=== PATIENT | male | born 1965 | race Caucasian/White ===

== ENCOUNTER 2023-03-13 09:00 | Outpatient (OUT) | payer MEDICAID, SELFPAY ==
[2023-03-13 10:21] LABS: Basophils Absolute Auto 0.1 10^3/uL (0.0-0.1); Basophils Percent Auto 0.8 % (0.2-2.0); Eosinophils Absolute Auto 0.1 10^3/uL (0.0-0.7); Eosinophils Percent Auto 1.3 % (0.9-7.0); Hematocrit 41.6 % (42.0-54.0); Hemoglobin 13.9 g/dL (14.0-18.0); Immature Granulocytes Abs Auto 0.03 10^3/uL (0.00-0.03); Immature Granulocytes Pct Auto 0.3 % (0.0-0.5); Lymphocytes Absolute Auto 1.7 10^3/uL (1.2-3.8); Lymphocytes Percent Auto 18.3 % (20.5-60.0); Mean Corpuscular HGB Conc 33.4 g/dL (29.9-35.2); Mean Corpuscular Hemoglobin 28.2 pg (25.9-34.0); Mean Corpuscular Volume 84.4 fL (80.0-94.0); Monocytes Absolute Auto 0.9 10^3/uL (0.3-0.8); Monocytes Percent Auto 10.1 % (1.7-12.0); Neutrophils Absolute Auto 6.3 10^3/uL (1.4-6.5); Neutrophils Percent Auto 69.2 % (43.0-75.0); Platelet Count 328 10^3/uL (150-450); Red Blood Count 4.93 10^6/uL (4.70-6.10); Red Cell Distribution Width 12.9 % (11.0-15.0)
[2023-03-13 16:46] LABS: Alanine Aminotransferase 44 U/L (16-63); Albumin Globulin Ratio 0.9; Albumin Level 3.6 g/dL (3.4-5.0); Alkaline Phosphatase 113 U/L (46-116); Anion Gap 11.2; Aspartate Amino Transferase 20 U/L (15-37); BUN Creatinine Ratio 11.3; Bilirubin Total 0.7 mg/dL (0.2-1.0); Calcium 8.9 mg/dL (8.5-10.1); Carbon Dioxide 29.8 mmol/L (21.0-32.0); Chloride 101 mmol/L (98-107); Cholesterol 117 mg/dL (<=200); Estimated GFR (African America >60 (>=60); Estimated GFR (Non-African Ame >60 (>=60); Globulin 4.1 g/dL; Glucose 111 mg/dL (74-106); HDL Cholesterol 39 mg/dL (40-60); Sodium 138 mmol/L (136-145); Total Protein 7.7 g/dL (6.4-8.2); Triglycerides 80 mg/dL (<=150)
== END 2023-03-13 09:01 | disposition home or self-care (01) ==
LOC: LAB 09:15
PROVIDERS: PCP Family Medicine; Visit Provider Internal Medicine Interventional Cardiology
DX: I25.10 Atherosclerotic heart disease of native coronary artery without angina pectoris (principal); E78.2 Mixed hyperlipidemia; I10 Essential (primary) hypertension
CPT/HCPCS: 36415; 80053; 80061; 85025

== ENCOUNTER 2023-09-06 14:24 | Emergency (ER) | payer MEDICAID, SELFPAY ==
[2023-09-06] VITALS (16 sets, daily range): BP systolic 149; BP diastolic 84–90; PULSE 62–77; TEMP 36.6; O2SAT 94–98; BMI 31.6
--- NOTE | 2023-09-06 14:40 | ED.GENADUL1 ---
HPI HPI - General Adult General Chief complaint: Chest Pain Stated complaint: HIGH BLOOD PRESSURE Time Seen by Provider: 09/06/23 14:38 Source: patient Mode of arrival: walk-in Limitations: no limitations History of Present Illness HPI narrative: Patient is a 58-year-old male Who is presenting to the ER today with chief complaint of burning sensation to the left upper chest wall. Patient has 1 stent, placed approximately 4 years ago. Patient is compliant with his medication, the patient takes 1 baby aspirin daily. Patient has an appointment with his medical engineer tomorrow, Dr. Jackson. Patient did have a stress test and echocardiogram last year that showed no significant abnormalities. Patient has no rash. No abdominal pain nausea vomiting. No diarrhea, constipation. No acid reflux symptoms. All systems are negative except as noted/marked. All systems reviewed and otherwise negative. Nurses note and vital signs reviewed and patient is not hypoxic. General: The patient appears well and in no apparent distress. Patient is resting comfortably on cart. Patient is not toxic, lethargic, or listless Skin: Warm, dry, no pallor noted. There is no rash noted. No petechiae, purpura. Head: Normocephalic, atraumatic Eye: Normal conjunctiva, no drainage, EOMI. PERRL Ears, Nose, Mouth, and Throat: oral mucosa is moist. Nares patent. Mouth without vesicles. Cardiovascular: Regular Rate and Rhythm, no murmur, gallop, rub. . Patient has no rash. No reproducible tenderness to palpation to the left anterior chest wall. No left anterior chest wall pain with range of motion of his left upper extremity. No midepigastric pain, no right or left upper quadrant tenderness to palpation. Respiratory: Patient is in no distress, no accessory muscle use, lungs are clear to auscultation, no wheezing, rales or rhonchi Back: non-tender, no CVA tenderness bilaterally to percussion. No CT LS midline pain GI: no tenderness to palpation, no masses appreciated. No rebound, guarding, or rigidity noted. No distention Musculoskeletal: Patient has full range of motion of all of the extremities, no motor, sensory, or focal neurological deficits Neurological: A&O x4, normal speech Psychiatric: Cooperative Related Data Home Medications ?Medication ?Instructions ?Recorded ?Confirmed amlodipine 10 mg tablet 10 mg PO DAILY 09/06/23 09/06/23 atorvastatin 20 mg tablet 20 mg PO DAILY 09/06/23 09/06/23 carvedilol 12.5 mg tablet 12.5 mg PO Q12H 09/06/23 09/06/23 furosemide 20 mg tablet 20 mg PO DAILY 09/06/23 09/06/23 insulin glargine 100 unit/mL (3 unit subcut 09/06/23 mL) subcutaneous pen (Lantus Solostar U-100 Insulin) losartan 100 mg tablet 100 mg PO DAILY 09/06/23 09/06/23 metformin 500 mg tablet 500 mg PO DAILY 09/06/23 09/06/23 zolpidem 10 mg tablet 10 mg PO DAILY 09/06/23 09/06/23 Allergies Allergy/AdvReac Type Severity Reaction Status Date / Time No Known Drug Allergies Allergy Verified 09/06/23 14:37 Opioid HPI Opioid Management Most Recent Opioid Data: No Data to Display Exam Constitutional Vital Signs, click to edit/add: Last Vital Signs Temp 97.9 F 09/06/23 14:34 Pulse 72 09/06/23 14:34 Resp 18 09/06/23 14:34 BP 149/84 H 09/06/23 14:34 Pulse Ox 97 09/06/23 14:34 Course Vital Signs Vital signs: Vital Signs Temperature 97.9 F 09/06/23 14:34 Pulse Rate 72 09/06/23 14:34 Respiratory Rate 18 09/06/23 14:34 Blood Pressure 149/84 H 09/06/23 14:34 Pulse Oximetry 97 09/06/23 14:34 Temperature 97.9 F 09/06/23 14:34 Pulse Rate 72 09/06/23 14:34 Respiratory Rate 18 09/06/23 14:34 Blood Pressure 149/84 H 09/06/23 14:34 Pulse Oximetry 97 09/06/23 14:34 Medical Decision Making MDM Narrative Medical decision making narrative: Patient EKG, x-ray, lab work shows no acute findings. Patient has an appointment with his medical engineer tomorrow, Dr. Jackson. Patient has been having symptoms intermittently for the past 3 to 4 days. Initial troponin is negative today. Patient cardiac workup negative, will see heart doctor tomorrow, no questions at discharge. Lab Data Labs: Lab Results 09/06/23 Range/Units 14:42 WBC 8.8 (4.0-11.0) 10^3/uL RBC 4.76 (4.70-6.10) 10^6/uL Hgb 13.4 L (14.0-18.0) g/dL Hct 39.5 L (42.0-54.0) % MCV 83.0 (80.0-94.0) fL MCH 28.2 (25.9-34.0) pg MCHC 33.9 (29.9-35.2) g/dL RDW 12.0 (11.0-15.0) % Plt Count 284 (150-450) 10^3/uL MPV 10.3 (9.5-13.5) fL Neut % (Auto) 65.2 (43.0-75.0) % Lymph % (Auto) 21.6 (20.5-60.0) % Beaver % (Auto) 11.3 (1.7-12.0) % Eos % (Auto) 1.1 (0.9-7.0) % Baso % (Auto) 0.6 (0.2-2.0) % Neut # (Auto) 5.7 (1.4-6.5) 10^3/uL Lymph # (Auto) 1.9 (1.2-3.8) 10^3/uL Beaver # (Auto) 1.0 H (0.3-0.8) 10^3/uL Eos # (Auto) 0.1 (0.0-0.7) 10^3/uL Baso # (Auto) 0.1 (0.0-0.1) 10^3/uL Abs Immat Gran (auto) 0.02 (0.00-0.03) 10^3/uL Imm/Tot Granulo (auto) 0.2 (0.0-0.5) % Sodium 137 (136-145) mmol/L Potassium 3.4 L (3.5-5.1) mmol/L Chloride 101 (98-107) mmol/L Carbon Dioxide 25.1 (21.0-32.0) mmol/L Anion Gap 14.3 BUN 14.0 (7.0-18.0) mg/dL Creatinine 1.03 (0.70-1.30) mg/dL Est GFR ( Amer) >60 (>=60) Est GFR (Non-Af Amer) >60 (>=60) BUN/Creatinine Ratio 13.6 Glucose 138 H (74-106) mg/dL Calcium 8.3 L (8.5-10.1) mg/dL Total Bilirubin 0.4 (0.2-1.0) mg/dL AST 18 (15-37) U/L ALT 30 (16-63) U/L Alkaline Phosphatase 120 H (46-116) U/L Troponin I High Sens 8.2 (4.0-76.1) pg/mL Total Protein 7.4 (6.4-8.2) g/dL Albumin 3.5 (3.4-5.0) g/dL Globulin 3.9 g/dL Albumin/Globulin Ratio 0.9 Lipase 47.0 (16.0-77.0) U/L ECG Data Attestation: I personally reviewed and interpreted this ECG as follows: (EKG interpretation. Normal sinus rhythm at 68 beats a minute. Normal axis deviation. No acute ST elevation, no acute ectopy. QTc of 419) Discharge Plan Discharge Stand Alone Forms: Portal Instructions Chief Complaint: Chest Pain Clinical Impression: Chest pain, Hypokalemia Patient Disposition: Home, Self-Care Time of Disposition Decision: 16:34 Condition: Fair Prescriptions / Home Meds: No Action amlodipine 10 mg tablet 10 mg PO DAILY atorvastatin 20 mg tablet 20 mg PO DAILY carvedilol 12.5 mg tablet 12.5 mg PO Q12H furosemide 20 mg tablet 20 mg PO DAILY insulin glargine [Lantus Solostar U-100 Insulin] 100 unit/mL (3 mL) insulin pen SUBCUT losartan 100 mg tablet 100 mg PO DAILY metformin 500 mg tablet 500 mg PO DAILY zolpidem 10 mg tablet 10 mg PO DAILY Print Language: Bengali Additional Instructions: See your medical engineer tomorrow as scheduled appointment. Continue medication as prescribed. Start taking daily multivitamins Referrals: VERNA YAÑEZ [Physician] - 1 week SHANNAN JOHNSON [Primary Care Provider] - 1 week
--- OUTSIDE RECORDS SUMMARY | 2023-09-06 14:50 | XMS_ITS | CCD ---
Author Organization [facility] Care Team Providers Care Catalog Librarian Name Role Phone FRED MISHRA Unavailable Unavailable DANN JOHNSON Unavailable Unavailable RENNO, ANAS Unavailable Unavailable RENNO, ANAS Unavailable Unavailable [place] Unavailable Unavailable UNKNOWN, PROVIDER Unavailable Unavailable PHYSICIAN, DEFAULT Unavailable Unavailable PHYSICIAN, DEFAULT Unavailable Unavailable DANN JOHNSON Unavailable Unavailable MYRNA FERNANDEZ Admitting Unavailable MYRNA FERNANDEZ Attending Unavailable ALEX, DR CAMPBELL Primary Care Unavailable MYRNA FERNANDEZ Admitting Unavailable MYRNA FERNANDEZ Attending Unavailable ALEX, DR CAMPBELL Primary Care Unavailable MYRNA FERNANDEZ Consulting Unavailable VERNA YAÑEZ Attending Unavailable DANN JOHNSON Attending Unavailable KANWAL RODRIGUEZ Attending Unavailable Dann Johnson MD Primary Care Provider [phone] Medications Current Medications Medication Drug Class(es) Dates Sig (Normalized) Sig (Original) amLODIPine 10 mg oral tablet (3 sources) Dihydropyridine Calcium Channel Megan Start: 2 take 1 tablet by mouth in the morning amLODIPine (Norvasc) 10 MG tablet Take 1 tablet by mouth in the morning. 0 10/10/2021 Active aspirin 81 mg delayed release oral tablet (3 sources) Platelet Aggregation Inhibitor, Nonsteroidal Anti-inflammatory Drug take 1 tablet by mouth once daily aspirin 81 MG EC tablet Take 1 tablet every day by oral route for 30 days. 0 Active atorvastatin 20 mg oral tablet (3 sources) HMG-CoA Reductase Inhibitor Start: 4 take 1 tablet by mouth once daily atorvastatin (Lipitor) 20 MG tablet Indications: Hypertriglyceridemia (CMS/HCC) TAKE ONE TABLET BY MOUTH ONCE DAILY 30 tablet 0 03/03/2023 Active carvedilol 25 mg oral tablet (3 sources) alpha-Adrenergic Megan, beta-Adrenergic Megan carvedilol (Coreg) 2 5 MG tablet TAKE 12 TABLET BY MOUTH TWICE A DAY 0 Active doxazosin 2 mg oral tablet (3 sources) alpha-Adrenergic Megan Start: 3 take 1 tablet by mouth in the morning doxazosin (Cardura) 2 MG tablet Take 1 tablet by mouth in the morning. 0 03/05/2022 Active 0.5 ml dulaglutide 3 mg/ml auto-injector (3 sources) GLP-1 Receptor Agonist Start: 3 Trulicity 1.5 MG/0.5ML solution pen-injector Indications: Type 2 diabetes mellitus with other specified complication, with long-term current use of insulin ([facility]) INJECT ONE INJECTION VIA SUBCUTANEOUS ROUTE ONCE WEEKLY 2 mL 11 02/03/2023 Active furosemide 20 mg oral tablet (3 sources) Loop Diuretic take 1 tablet by mouth in the morning furosemide (Lasix) 20 MG tablet Take 1 tablet by mouth in the morning. 0 Active 3 ml insulin glargine 100 unt/ml pen injector (3 sources) Insulin Analog Start: 3 Lantus SoloStar 100 UNIT/ML pen Indications: Type 2 diabetes mellitus with other specified complication, unspecified whether intermediate teacher insulin use ([facility]) INJECT 25 UNITS SUB-Q DAILY (55 DAYS) 15 mL 2 12/08/2022 Active losartan potassium 100 mg oral tablet (3 sources) Angiotensin 2 Receptor Megan Start: 3 take 1 tablet by mouth in the morning losartan (Cozaar) 100 MG tablet Take 1 tablet by mouth in the morning. 0 03/03/2022 Active metFORMIN hydrochloride 500 mg oral tablet (3 sources) Biguanide Start: 3 take 1 tablet by mouth twice daily metFORMIN (Glucophage) 500 MG tablet Indications: Type 2 diabetes mellitus with hyperglycemia, unspecified whether intermediate insulin use ([facility]) TAKE ONE TABLET BY MOUTH TWICE A DAY 60 tablet 11 11/02/2022 Active nitroglycerin 0.4 mg sublingual tablet (3 sources) Nitrate Vasodilator nitroglyceri n (Nitrostat) 0.[address] 1 TABLET UNDER YOUR TONGUE EVERY 5 MINUTES NEEDED FOR CHEST PAIN FOR 3 DOSES ONLY. IF NO RELIEF, CALL [phone] Active zolpidem tartrate 10 mg oral tablet (3 sources) gamma-Aminobutyric Acid-ergic Agonist Start: 3 take 1 tablet by mouth once daily at bedtime as needed zolpidem (Ambien) 10 MG tablet Indications: Insomnia, unspecified type TAKE ONE TABLET BY MOUTH ONCE DAILY AT BEDTIME NEEDED 30 tablet 3 01/11/2023 Active Completed/Discontinued Medications Medication Drug Class(es) Dates Sig (Normalized) Sig (Original) clopidogrel 75 mg oral tablet (3 sources) P2Y12 Platelet Inhibitor Start: 10-10-2021 End: 03-25-2023 take 1 tablet by mouth in the morning clopidogrel (Plavix) 75 MG tablet Take 1 tablet by mouth in the morning. 0 10/10/2021 03/25/2023 Discontinued (Other) minocycline 100 mg oral capsule (3 sources) Tetracycline-cla ss Drug Start: 02-16-2023 End: 03-25-2023 take 1 capsule by mouth twice daily minocycline 100 MG capsule Indications: Infection of superficial incisional surgical site after procedure, initial encounter Take 1 capsule, by mouth, bid, 10 days 20 capsule 0 02/16/2023 03/25/2023 Discontinued (Other) Problems Active Problems Problem Classification Problem Date Documented Date Episodic/Chronic Cardiac dysrhythmias (1 source) Bradycardia, unspecified; Translations: [BRADYCARDIA, UNSPECIFIED] Onset: 10-01-2017 Chronic Coronary atherosclerosis and other heart disease (20 sources) Atherosclerotic heart disease of [place] coronary artery without angina pectoris; Translations: [Atherosclerotic heart disease of [place] coronary artery with unstable angina pectoris] Onset: 10-01-2017 Chronic Coronary atherosclerosis and other heart disease (2 sources) Presence of coronary angioplasty implant and graft; Translations: [Presence of coronary angioplasty implant and graft] Onset: 03-10-2023 Episodic Diabetes mellitus with complications (8 sources) Hyperglycemia due to type 2 diabetes mellitus; Translations: [Type 2 diabetes mellitus with hyperglycemia] Onset: 10-31-2018 09-17-2022 Chronic Diabetes mellitus without complication (4 sources) Type 2 diabetes mellitus without complications; Translations: [Type 2 diabetes mellitus] Onset: 10-01-2017 09-17-2022 Chronic Digestive congenital anomalies (3 sources) Congenital anomaly of liver; Translations: [Liver anomaly, congenital] Onset: 04-06-2016 09-17-2022 Chronic Disorders of lipid metabolism (9 sources) Hyperlipidemia, unspecified; Translations: [Mixed hyperlipidemia] Onset: 05-10-2017 Chronic Esophageal disorders (3 sources) Gastroesophageal reflux disease; Translations: [Gastro-esophageal reflux disease without esophagitis] Onset: 04-04-2007 09-17-2022 Chronic Essential hypertension (6 sources) Essential (primary) hypertension; Translations: [Essential hypertension] Onset: 07-09-2015 Chronic Fluid and electrolyte disorders (1 source) Hypokalemia; Translations: [HYPOKALEMIA] Onset: 10-01-2017 Episodic Headache; including migraine (3 sources) Tension-type headache; Translations: [Tension-type headache, unspecified, not intractable] Onset: 07-09-2015 09-17-2022 Chronic Melanomas of skin (3 sources) Melanoma in situ of left upper limb, including shoulder; Translations: [Malignant melanoma of skin of upper limb, including shoulder] Onset: 09-17-2022 09-17-2022 Chronic Osteoarthritis (3 sources) Localized, primary osteoarthritis of the hand; Translations: [Primary osteoarthritis, unspecified hand] Onset: 09-17-2022 09-17-2022 Chronic Other aftercare (4 sources) Long-term current use of insulin; Translations: [intermediate (current) use of insulin] Onset: 03-25-2023 03-25-2023 Episodic Other male genital disorders (3 sources) Secondary erectile dysfunction; Translations: [Male erectile dysfunction, unspecified] Onset: 04-04-2007 09-17-2022 Chronic Other nutritional; endocrine; and metabolic disorders (3 sources) Lipoprotein deficiency disorder; Translations: [Lipoprotein deficiency] Onset: 07-16-2015 09-17-2022 Chronic Other nutritional; endocrine; and metabolic disorders (3 sources) Cholesterol level - finding; Translations: [Lipoprotein deficiency] Onset: 09-17-2022 09-17-2022 Chronic Unclassified (2 sources) Unknown / UNK(Unknown) Onset: 10-01-2017 Past or Other Problems Problem Classification Problem Date Documented Da te Episodic/Chronic Calculus of urinary tract (3 sources) Kidney stone; Translations: [Calculus of kidney] Onset: 03-11-2016 09-17-2022 Episodic Diabetes mellitus without complication (6 sources) Hyperglycemia; Translations: [Hyperglycemia, unspecified] Onset: 04-06-2016 09-17-2022 Episodic Other circulatory disease (3 sources) Elevated blood pressure; Translations: [Elevated blood-pressure reading, without diagnosis of hypertension] Onset: 07-16-2015 09-17-2022 Episodic Residual codes; unclassified (3 sources) Insomnia; Translations: [Insomnia, unspecified] Onset: 08-06-2022 08-06-2022 Episodic Residual codes; unclassified (3 sources) Edema of lower extremity; Translations: [Localized edema] Onset: 03-17-2019 09-17-2022 Episodic Residual codes; unclassified (3 sources) Amnesia; Translations: [Other amnesia] Onset: 09-17-2022 09-17-2022 Episodic Results Test Name Value Interpretation [facility] Laboratory - Hematology and Cell countson 03-25-2023 HbA1c (Bld) [Mass fraction] 6.5 % [facility] No Panel Informationon 03-25 Interpretation and review of laboratory results Normal [facility] Office Visiton 03-10-2023 Follow-up visit [id number] Dasha Squires 1965 M Date Provider Department Center 03/10/[address] [facility] Family History Problem Relation Age of Onset Other Mother Hypertension Father Coronary artery disease Father Family Status - Relation Status Age at Mother Father Level of Service:30515 [place] OFFICE/OUTPATIENT ESTABLISHED LOW MDM 20 MIN Normal [facility] 36on 03-03-2023 36 Approving, but needs appt for additional refills. Normal [facility] LIPID PROFILEon 05-12-2021 CHOL-HDL RATIO NORM SEE BELOW Normal [facility] Comment on above: Result Comment: 3.3 - 4.4 LOW RISK 4.4 - 7.1 AVERAGE RISK 7.1 - 11.0 MODERATE RISK >11.0 HIGH RISK Performed By: #### L IPID, CMP #### [facility] [address] [address] [address] Suman Montes Cholesterol [Mass/Vol] 100 mg/dL Normal <=200 [facility] Comment on above: Performed By: #### LIPID, CMP #### [facility] [address], [place] [address] Dr. Suman Montes Cholesterol in HDL [Mass/Vol] 39 mg/dL Critically low 40-60 [facility] Comment on above: Performed By: #### LIPID, CMP #### [facility] [address] [address] [address] Suman Montes Cholesterol in LDL [Mass/Vol] 43.8 mg/dL Normal [facility] Comment on above: Performed By: #### LIPID, CMP #### [facility] [address] [address] [address] Suman Montes Cholesterol.tota l/Cholesterol in HDL [Mass ratio] 2.6 {ratio} Normal [facility] Comment on above: Performed By: #### LIPID, CMP #### [facility] [address] [address] [address] Suman Montes HDL NORMAL > or = 60 mg/dl - LO W CARDIOVASCULAR RISK <40 mg/dl - HIGH CARDIOVASCULAR RISK Normal [facility] Comment on above: Performed By: #### LIPID, CMP #### [facility] [address] [place] [address] Dr. Suman Montes LDL CALC NORMAL SEE BELOW Normal [facility] Comment on above: Result Comment: <100 mg/dl OPTIMAL 100 - 129 mg/dl NEAR OR ABOVE OPTIMAL 130 - 159 mg/dl BORDERLINE HIGH 160 - 189 mg/dl HIGH >190 mg/dl VERY HIGH Performed By: #### L IPID, CMP #### [facility] [address] [address] [address] Suman Montes Triglyceride [Mass/Vol] 86 mg/dL Normal <=150 [facility] Comment on above: Performed By: #### LIPID, CMP #### [facility] [address] [place] [address] Dr. Suman Montes VLDL CALC 17.2 mg/dL Normal [facility] Comment on above: Performed By: #### LIPID, CMP #### [facility] [address] [address] [address] Suman Montes PROF 14(COMP METB)on 022 Albumin [Mass/Vol] 3.9 g/dL Normal 3.4-5.0 [facility] Comment on above: Performed By: #### LIPID, CMP #### [facility] [address] [place] [address] Dr. Suman Montes Albumin/Globulin [Mass ratio] 0.9 {ratio} Normal [facility] Comment on above: Performed By: #### LIPID, CMP #### [facility] [address] [address] [address] Suman Montes ALP [Catalytic activity/Vol] 136 U/L Critically high 46-116 [facility] Comment on above: Performed By: #### LIPID, CMP #### [facility] [address] [address] [address] Suman Montes ALT [Catalytic activity/Vol] 23 U/L Normal 16-63 [facility] Comment on above: Performed By: #### LIPID, CMP #### [facility] [address] [place] [address] Dr. Suman Montes Anion gap [Moles/Vol] 11.9 mmol/L Normal [facility] Comment on above: Performed By: #### LIPID, CMP #### [facility] [address] [place] [address] Dr. Suman Montes AST [Catalytic activity/Vol] 13 U/L Critically low 15-37 [facility] Comment on above: Performed By: #### LIPID, CMP #### [facility] [address] [place] [address] Dr. Suman Montes Bilirubin [Mass/Vol] 0.5 mg/dL Normal 0.2-1.3 [facility] Comment on above: Performed By: #### LIPID, CMP #### [facility] [address] [place] [address] Dr. Suman Montes Calcium [Mass/Vol] 8.7 mg/dL Normal 8.5-10.1 [facility] Comment on above: Performed By: #### LIPID, CMP #### [facility] [address] [address] [address] Suman Montes Chloride [Moles/Vol] 103 mmol/L Normal 98-107 [facility] Comment on above: Performed By: #### LIPID, CMP #### [facility] [address] [place] [address] Dr. Suman Montes CO2 [Moles/Vol] 28.8 mmol/L Normal 22.0-30.0 [facility] Comment on above: Performed By: #### LIPID, CMP #### [facility] [address] [address] [address] Suman Montes Creatinine [Mass/Vol] 0.97 mg/dL Normal 0.66-1.25 [facility] Comment on above: Performed By: #### LIPID, CMP #### [facility] [address] [place] [address] Dr. Suman Montes EGFR-AF ZAMBIAN >60 Normal >=60 [facility] Comment on above: Performed By: #### LIPID, CMP #### [facility] [address] [address] [address] Suman Montes EGFR-NON AF ZAMBIAN >60 Normal >=60 [facility] Comment on above: Performed By: #### LIPID, CMP #### [facility] [address] [place] [address] Dr. Suman Montes Globulin (S) [Mass/Vol] 4.2 g/dL Normal [facility] Comment on above: Performed By: #### LIPID, CMP #### [facility] [address] [place] [address] Dr. Suman Montes Glucose [Mass/Vol] 87 mg/dL Normal 74-106 [facility] Comment on above: Performed By: #### LIPID, CMP #### [facility] [address] [place] [address] Dr. Suman Montes Potassium [Moles/Vol] 3.7 mmol/L Normal 3.4-5.0 [facility] Comment on above: Performed By: #### LIPID, CMP #### [facility] [address] [place] [address] Dr. Suman Montes Protein [Mass/Vol] 8.1 g/dL Normal 6.1-8.2 [facility] Comment on above: Performed By: #### LIPID, CMP #### [facility] [address] [place] [address] Dr. Suman Montes Sodium [Moles/Vol] 140 mmol/L Normal 137-145 [facility] Comment on above: Performed By: #### LIPID, CMP #### [facility] [address], [place] [address] Dr. Suman Montes Urea nitrogen [Mass/Vol] 14.0 mg/dL Normal 7.0-18.0 [facility] Comment on above: Performed By: #### LIPID, CMP #### [facility] [address], [place] [address] Dr. Suman Montes Urea nitrogen/Creatin ine [Mass ratio] 14.4 mg/mg Normal [facility] Comment on above: Performed By: #### LIPID, CMP #### [facility] [address], [place] [address] Dr. Suman Montes Q - MICROALBUMIN,RANDOM URIN E (W/CREAT)on 03-24-2021 Albumin DL <= 20 mg/L (U) [Mass/Vol] 1.8 mg/dL Normal See Note: [facility] Comment on above: Order Comment: [facility] Testing performed at: [facility], [address] [place] [address], [address] [place] [address], [address] [place] [address], [employer]: Toi Dey MD [facility] Collection Date/Time: [facility] Results Received Date/Time: [facility] Reported Date/Time: Result Comment: Refe rence Range: Reference Range Not established Performed By: #### 6 [id number] #### [facility] Default [address] [place] [address] Creatinine (U) [Mass/Vol] 256 mg/dL Normal 20-320 [facility] Comment on above: Order Comment: [facility] Testing performed at: [facility], [address] [place] [address], [address] [place] [address], [address] [place] [address], [employer]: Toi Dey MD [facility] Collection Date/Time: [facility] Results Received Date/Time: [facility] Reported Date/Time: Performed By: #### 6 [id number] #### [facility] [address] [place] [address] MICROALBUMIN/CRE ATININE RATIO, RANDOM URINE 7 mcg/mg creat Normal <30 [facility] Regulation Supervisor Comment on above: Order Comment: [facility] Testing performed at: [facility], [facility], [address], [address] [facility], [place], [address], [employer]: Toi Dey MD [facility] Collection Date/Time: [id number] [facility] Results Received Date/Time: [facility] Reported Date/Time: Result Comment: The ADA defines abnormalities in albumin excretion as follows: Albuminuria Category Result (mcg/mg creatinine) Normal to Mildly increased <30 Moderately increased 30-299 Severely increased > OR = 300 The ADA recommends that at least two of three specimens collected within a 3-6 month period be abnormal before considering a patient to be within a diagnostic category. Performed By: #### 6 [id number] #### [facility] [address] [place] [address] BASIC METABOLIC PANELon 08-2 Calcium mass conc 9.0 mg/dL Normal 8.6-10.3 [facility] Comment on above: Order Comment: No: Do not add to previou s draw Performed By: #### 3 5200 ####[facility] [facility] [place] [address], [facility] Chloride molar conc 101 mmol/L Normal 98-107 [facility] Comment on above: Order Comment: No: Do not add to previou s draw Performed By: #### 3 5200 ####[facility] [place] [address], [facility] CO2 molar conc 26 mmol/L Normal 21-31 [facility] Comment on above: Order Comment: No: Do not add to previou s draw Performed By: #### 3 5200 ####[facility] [facility] [place] [address], [facility] Creatinine mass conc 0.99 mg/dL Normal 0.70-1.30 [facility] Comment on above: Order Comment: No: Do not add to previou s draw Performed By: #### 3 5200 ####[facility] [place] [address], [place] GFR/1.73 sq M predicted among blacks MDRD vol rate/area (S/P/Bld) mL/min/{1.73_m2} Normal >60 [facility] Comment on above: Order Comment: No: Do not add to previou s draw Performed By: #### 3 5200 ####[facility] [place] [address], [place] GFR/1.73 sq M predicted among non-blacks MDRD vol rate/area (S/P/Bld) mL/min/{1.73_m2} Normal >60 [facility] Comment on above: Order Comment: No: Do not add to previou s draw Performed By: #### 3 5200 ####[facility] [place] [address], [facility] Glucose mass conc 209 mg/dL High 70-100 [facility] Comment on above: Order Comment: No: Do not add to previou s draw Performed By: #### 3 5200 ####[facility] [place] [address], [facility] Potassium molar conc 3.5 mmol/L Normal 3.5-5.1 [facility] Comment on above: Order Comment: No: Do not add to previou s draw Performed By: #### 3 5200 ####[facility] [place] [address], [place] Sodium molar conc 135 mmol/L Low 136-145 [facility] Comment on above: Order Comment: No: Do not add to previou s draw Performed By: #### 3 5200 ####[facility] [place] [address], [place] Urea nitrogen mass conc 24 mg/dL Normal 7-25 [facility] Comment on above: Order Comment: No: Do not add to previou s draw Performed By: #### 3 5200 ####[facility] CBC COMPLETE BLOOD COUNTon 0 10-05-2017 Erythrocyte distribution width Auto Ratio (RBC) 12.6 % Normal 11.5-15.0 [facility] Comment on above: Order Comment: No: Do not add to previou s draw Performed By: #### 3 5200 ####[facility], [place] [address] [place] [address] Hematocrit Auto Volume Fraction (Bld) 45.3 % Normal 39.0-50.0 [facility] Comment on above: Order Comment: No: Do not add to previou s draw Performed By: #### 3 5200 ####[facility], [place] [id number] [place] [address] Hemoglobin mass conc (Bld) 15.1 g/dL Normal 13.0-17.0 [facility] Comment on above: Order Comment: No: Do not add to previou s draw Performed By: #### 3 5200 ####[facility] MCH Auto Entitic mass (RBC) 28.1 pg Normal 27.0-33.0 [facility] Comment on above: Order Comment: No: Do not add to previou s draw Performed By: #### 3 5200 ####[facility] [place] [address], [facility] MCHC Auto mass conc (RBC) 33.3 g/dL Normal 32.0-35.0 [facility] Comment on above: Order Comment: No: Do not add to previou s draw Performed By: #### 3 5200 ####[facility] [place] [address], [facility] MCV Auto Entitic volume (RBC) 84.4 fL Normal 82.0-98.0 [facility] Comment on above: Order Comment: No: Do not add to previou s draw Performed By: #### 3 5200 ####[facility] [facility].[address] Nucleated RBC/100 WBC Ratio (Bld) 0 % Normal 0-0 [facility] Comment on above: Order Comment: No: Do not add to previou s draw Performed By: #### 3 5200 ####[facility] [facility] [place] [address], [facility] PLAT CNT 316 10*3/uL Normal 150-400 [facility] Comment on above: Order Comment: No: Do not add to previou s draw Performed By: #### 3 5200 ####[facility] [facility].[address] RBC Auto #/vol (Bld) 5.37 10*6/uL Normal 4.20-5.70 [facility] Comment on above: Order Comment: No: Do not add to previou s draw Performed By: #### 3 5200 ####[facility] [facility].[address] WBC Auto #/vol (Bld) 13.77 10*3/uL High 4.00-10.60 [facility] Comment on above: Order Comment: No: Do not add to previou s draw Performed By: #### 3 5200 ####[facility] [facility].[address] Cardiovascular Lab Reporton 10-05-2017 Cardiovascular Lab Report [facility]: [id number] Physician: Verna Tidwell M.D.Medicine Service Date: 10/04/2017Division of Birthdate: 1965Cardiology Room #: [id number] [facility], [place] [address]Eiwhj Fax Cardiovascular Laboratory ReportINDICATION: Monica Squires is a 52-year-old man, who was admitted withunstable angina. A stress test showed lateral ischemia. He was referredfor cardiac catheterization.PROCEDURE:1. Bilateral selective coronary angiography.2. Limited right femoral angiography.3. Successful balloon angioplasty and drug-eluting stenting of 85% stenosis in the mid LAD, reduced to 0% by deployment of a Synergy 3.5 x 20 mm drug-eluting stent post dilated to 3.5 mm at high pressures.4. Administration of intracoronary nitroglycerin.5. Deployment of a vascular access closure device.METHOD: Procedure was explained to the patient with risks and benefits.He signed informed consent. He was brought to pathology laboratory director in a fasting state.The right wrist area was prepped and draped in usual fashion. Jorge's testwas favorable using ultrasound access and micropuncture technique, attemptat accessing the right radial artery failed due to very small caliber ofthe vessel, this access site was abandoned.The right groin area was prepped and draped in usual fashion. Usingultrasound guidance and micropuncture technique, access was obtained in theright common femoral artery. The inner cannula was advanced. Limitedright femoral angiography was performed followed by upsizing to a 6-Frenchx 11 cm sheath. Bilateral selective coronary angiography was thenperformed using 6-Qatari JL3.5, and JR4 diagnostic catheters. Catheterswere removed.Heparin was administered intravenously and therapeutic ACT confirmed duringthe procedure. A 6-Qatari XB 3.5 guiding catheter was advanced and used toengage left main coronary ostium. A [place] wire was advanced into thedistal LAD. Balloon angioplasty in the mid LAD was performed using Emerge3.0 x 15 mm balloon, inflated at 12 atmospheres. Angiography revealedsuboptimal results. This was treated using a Synergy 3.5 x 20 mmdrug-eluting stent deployed at 11 atmospheres, post dilated using NCQuantum [place] 3.5 x 15 mm noncompliant balloon inflated at 16 atmospheresthroughout the length of the stent. Angiography after administration ofintracoronary nitroglycerin showed excellent result with no evidence ofdissection or perforation and TANNER-3 flow in the LAD and branches. Guidingcatheter was removed. Procedure was concluded. The right femoralarteriotomy was managed with a 6-Qatari Perclose device with goodhemostasis. He was loaded with 600 mg of Plavix at the end of theprocedure. He was transferred back to his room.TOTAL FLUORO TIME: 12.12 minutes.TOTAL AIR KARMA: 1077 mGy.TOTAL CONTRAST VOLUME: 150 mL.HEMODYNAMICS: AO 98/63, mean 79.CORONARY ANGIOGRAPHY: This is a right dominant circulation.Left main. This arises from left coronary cusp. It bifurcates into leftanterior descending and circumflex vessels. Left main is free of disease.Left anterior descending. This has 85% irregular stenosis in its midsegment. This was reduced to 0% by balloon angioplasty and Synergydrug-eluting stent. The apical LAD has 80% stenosis. The location of thestenosis is very close to the distal end of the LAD. A second diagonalbranch has a 50% ostial stenosis. This branch is of moderate caliber.Circumflex vessel. This is nondominant and has minimal luminalirregularities.Right coronary artery. This arises from the right coronary cusp. It is alarge and dominant vessel. It has a 60% mid segment stenosis, but no clearobstructive lesions.Limited right femoral angiography. This showed access to be in the rightcommon femoral artery with no obstructive lesions noted in the femoralartery or its proximal branches.SUMMARY OF FINDINGS:1. Coronary artery disease with moderate to severe 2-vessel disease.2. An 85% mid LAD, irregular stenosis, reduced to 0% by Synergy drug-eluting stent.3. An 80% stenosis in the very apical LAD.4. A 50% stenosis in the ostium of a moderate size 2nd diagonal branch.5. A 60% stenosis in the mid right coronary artery.RECOMMENDATIONS:1. Aspirin and statin therapy for life.2. Plavix therapy for minimum of 1 year after unstable angina and drug-eluting stenting.3. It is recommended that this patient undergoes a followup stress test to look for ischemia on the right coronary artery territory and revascularize accordingly.4. Follow up in Cardiology Clinic.Electronically Signed by:Verna Yañez M.D. 10/18/2017 12:03 A Verna Yañez M.D.Date Dict: 10/04/2017/01:46 P/Verna Yañez M.D.Date Trans: 10/05/2017 05:11 A/[id number]_[id number]: Dann Johnson M.D. [facility] [address] [facility] [address] Fred Mishra M.D. [address] Internal Medicine [facility] [address] Normal [facility] Discharge Summaryon 10-06-19 Discharge Summary MR#: [id number] [facility] Monica Squires Admitted: 10/01/2017 Discharged: 10/05/2017 Date of : 1965 Physician: Yue Ibarra M.D. DISCHARGE SUMMARYDISCHARGING PHYSICIAN: Dr. Ibarra.PRIMARY CARE PHYSICIAN: Dr. Dann Johnson.PRIMARY DIAGNOSIS: Coronary artery disease status post stent placement.SECONDARY DIAGNOSES:1. Hypertension, controlled.2. Dyslipidemia.CONSULTS: Cardiology.PROCEDURES/IMAGING: EKG, stress test, and cardiac cath.HOSPITAL COURSE: This is a 52-year-old male, presented to [facility] for chestpain. EKG was done that was unremarkable except sinus bradycardia.Troponins were negative. Cardiology was consulted. Stress test revealedischemia. Cardiac catheterization was done and was found to be mid leftatrial disease with 85% blockage. Balloon angioplasty, and drug-elutingstent was placed, size of 3.5 x 20 mm. He was started on aspirin andstatin for life and recommended Plavix for 1 year. He was also recommendedto follow up for stress test to rule out ischemia. He is denying any chestpain, shortness of breath, dizziness, or diaphoresis. He also denies anynausea, vomiting, fever, or chills, He is going to follow up with as an outpatient.MEDICATIONS AT THE TIME OF DISCHARGE:1. Aspirin 81 mg once daily.2. Amlodipine 10 mg once daily.3. Ambien 10 mg once daily.4. Lipitor 80 mg once daily at bedtime.5. Coreg 12.5 mg twice daily.6. Plavix 75 mg once daily.7. Hydrochlorothiazide 25 mg once daily.8. Losartan 100 mg once daily.9. Metformin 1000 mg once daily.10. Tylenol 325 mg every 6 hours as needed.11. Nitroglycerin 0.4 mg sublingual tablet as directed.PHYSICAL EXAMINATION: GENERAL: No acute distress. Alert and oriented x3.VITAL SIGNS: Stable.HEENT: Normocephalic, nonicteric. PERRLA.LUNGS: Clear to auscultation bilaterally. No wheezing. Nonlabored.CARDIOVASCULAR: Regular rate and rhythm. No murmur. No JVD.ABDOMEN: Soft, nontender, nondistended. Bowel sounds positive. Noguarding or rebound.EXTREMITIES: No edema. Pulses palpable.NEURO: No acute focal deficit.PSYCH: Stable mood.DISCHARGE CONDITION: Medically stable.DISCHARGE DISPOSITION: Home.FOLLOWUP:1. Follow up with your PCP, Dr. Johnson within 1 week.2. Follow up with Dr. Yañez on 10/25/2017 at 9:45 a.m. at [facility].MEDICATIONS: Continue aspirin, statin, and Plavix as prescribed.Time spent for the discharge summary and coordination of care is 37minutes.Electronically Signed by:Yue Ibarra M.D. 10/08/2017 04:16 P ____uYe Ibarra M.D. I personally saw this patient on the day of the encounter, performed thekey portion(s) of the service and participated in the management andconfirm the resident's documentation. Please note there may be anadditional personal documentation from me. Date Dict: 10/05/2017/05:25 P/Mahendra Dailey Trans: 10/05/2017 06:46 P/[id number]: Dann Johnson M.D. [facility] [address] [facility] [address] Fred Mishra M.D. [address] [facility]. [facility] [address] [facility] POC GLUCOSE LABon 10-05-2017 Glucose mass conc 134 mg/dL High 70-100 [facility] Comment on above: Performed By: #### [id number] ####[facility] [place] [address], [facility] BASIC METABOLIC PANELon 09-16 Calcium mass conc 9.0 mg/dL Normal 8.6-10.3 [facility] Comment on above: Order Comment: No: Do not add to previou s draw Performed By: #### 5 610, 62286 ####[facility] [place] [address], [facility] Chloride molar conc 103 mmol/L Normal 98-107 [facility] Comment on above: Order Comment: No: Do not add to previou s draw Performed By: #### 5 610, 73352 ####[facility] [place] [address], [facility] CO2 molar conc 25 mmol/L Normal 21-31 [facility] Comment on above: Order Comment: No: Do not add to previou s draw Performed By: #### 5 344, 05134 ####[facility] [place] [address], [facility] Creatinine mass conc 1.05 mg/dL Normal 0.70-1.30 [facility] Comment on above: Order Comment: No: Do not add to previou s draw Performed By: #### 5 079, 03726 ####[facility] [place] [address], [place] GFR/1.73 sq M predicted among blacks MDRD vol rate/area (S/P/Bld) mL/min/{1.73_m2} Normal >60 [facility] Comment on above: Order Comment: No: Do not add to previou s draw Performed By: #### 5 610, 46320 ####[facility] GFR/1.73 sq M predicted among non-blacks MDRD vol rate/area (S/P/Bld) mL/min/{1.73_m2} Normal >60 [facility] Comment on above: Order Comment: No: Do not add to previou s draw Performed By: #### 5 610, 92037 ####[facility] Glucose mass conc 170 mg/dL High 70-100 [facility] Comment on above: Order Comment: No: Do not add to previou s draw Performed By: #### 5 610, 60841 ####[facility] Potassium molar conc 3.1 mmol/L Low 3.5-5.1 [facility] Comment on above: Order Comment: No: Do not add to previou s draw Performed By: #### 5 610, 76796 ####[facility] Sodium molar conc 137 mmol/L Normal 136-145 [facility] Comment on above: Order Comment: No: Do not add to previou s draw Performed By: #### 5 610, 42466 ####[facility] Urea nitrogen mass conc 32 mg/dL High 7-25 [facility] Comment on above: Order Comment: No: Do not add to previou s draw Performed By: #### 5 610, 03130 ####[facility] [place] [address], [facility] CBC W/DIFFon 10-04-2017 ABS BASOPHILS 0.1 10*3/uL Normal 0.0-0.2 [facility] Comment on above: Order Comment: No: Do not add to previou s draw Performed By: #### 5 610, 32850 ####[facility] [facility].[address] ABS IMM GRANS 0.0 10*3/uL Normal 0.0-0.2 [facility] Comment on above: Order Comment: No: Do not add to previou s draw Performed By: #### 5 610, 89495 ####[facility]3000 [facility].[address] ABS NEUTROPHILS 6.1 10*3/uL Normal 1.6-7.6 [facility] Comment on above: Order Comment: No: Do not add to previou s draw Performed By: #### 5 6100, 49380 ####[facility] [facility].[address] Basophils Auto #/vol (Bld) 0.5 % Normal 0.0-1.0 [facility] Comment on above: Order Comment: No: Do not add to previou s draw Performed By: #### 5 6100, 92868 ####[facility] [facility].[address] Eosinophils Auto #/vol (Bld) 0.1 10*3/uL Normal 0.0-0.5 [facility] Comment on above: Order Comment: No: Do not add to previou s draw Performed By: #### 5 6100, 68973 ####[facility] [facility].[address] Eosinophils/100 WBC Auto (Bld) 1.4 % Normal 0.0-6.0 [facility] Comment on above: Order Comment: No: Do not add to previou s draw Performed By: #### 5 610, 41666 ####[facility] [facility].[address] Erythrocyte distribution width Auto Ratio (RBC) 12.3 % Normal 11.5-15.0 [facility] Comment on above: Order Comment: No: Do not add to previou s draw Performed By: #### 5 610, 90659 ####[facility] [facility] Hematocrit Auto Volume Fraction (Bld) 44.4 % Normal 39.0-50.0 [facility] Comment on above: Order Comment: No: Do not add to previou s draw Performed By: #### 5 6100, 79412 ####[facility] Hemoglobin mass conc (Bld) 14.9 g/dL Normal 13.0-17.0 [facility] Comment on above: Order Comment: No: Do not add to previou s draw Performed By: #### 5 6100, 18550 ####[facility] [facility].[address] IMMATURE GRANS 0.3 % Normal 0.0-1.0 [facility] Comment on above: Order Comment: No: Do not add to previou s draw Performed By: #### 5 6100, 27615 ####[facility] [facility].[address] Lymphocytes Auto #/vol (Bld) 2.4 10*3/uL Normal 1.2-4.0 [facility] Comment on above: Order Comment: No: Do not add to previou s draw Performed By: #### 5 6100, 06515 ####[facility] Lymphocytes/100 WBC Auto (Bld) 24.0 % Normal 20.0-45.0 [facility] Comment on above: Order Comment: No: Do not add to previou s draw Performed By: #### 5 610, 96680 ####[facility] MCH Auto Entitic mass (RBC) 28.0 pg Normal 27.0-33.0 [facility] Comment on above: Order Comment: No: Do not add to previou s draw Performed By: #### 5 6100, 48601 ####[facility] MCHC Auto mass conc (RBC) 33.6 g/dL Normal 32.0-35.0 [facility] Comment on above: Order Comment: No: Do not add to previou s draw Performed By: #### 5 6100, 49399 ####[facility] MCV Auto Entitic volume (RBC) 83.5 fL Normal 82.0-98.0 [facility] Comment on above: Order Comment: No: Do not add to previou s draw Performed By: #### 5 6100, 23332 ####[facility] Monocytes Auto #/vol (Bld) 1.3 10*3/uL High 0.1-1.0 [facility] Comment on above: Order Comment: No: Do not add to previou s draw Performed By: #### 5 6100, 04114 ####[facility] MONOS 13.1 % High 5.0-12.0 [facility] Comment on above: Order Comment: No: Do not add to previou s draw Performed By: #### 5 6100, 68286 ####[facility] Neutrophils/100 WBC Auto (Bld) 60.7 % Normal 40.0-72.0 [facility] Comment on above: Order Comment: No: Do not add to previou s draw Performed By: #### 5 6100, 35651 ####[facility] Nucleated RBC/100 WBC Ratio (Bld) 0 % Normal 0-0 [facility] Comment on above: Order Comment: No: Do not add to previou s draw Performed By: #### 5 6101, 32261 ####[facility] [facility] [place] [address], [facility] PLAT CNT 304 10*3/uL Normal 150-400 [facility] Comment on above: Order Comment: No: Do not add to previou s draw Performed By: #### 5 6101, 59346 ####[facility] [facility].[address] RBC Auto #/vol (Bld) 5.32 10*6/uL Normal 4.20-5.70 [facility] Comment on above: Order Comment: No: Do not add to previou s draw Performed By: #### 5 6101, 17062 ####[facility] [facility].[address] WBC Auto #/vol (Bld) 9.99 10*3/uL Normal 4.00-10.60 [facility] Comment on above: Order Comment: No: Do not add to previou s draw Performed By: #### 5 6101, 54587 ####[facility] [facility].[address] MAGNESIUM BLOODon 10-04-2017 Magnesium mass conc 1.9 mg/dL Normal 1.9-2.7 [facility] Comment on above: Order Comment: No: Do not add to previou s draw Performed By: #### 3 5200 ####[facility] [facility] [place] [address], [facility] PHOSPHORUS BLOODon 8 Phosphate mass conc 3.8 mg/dL Normal 2.5-5.0 [facility] Comment on above: Order Comment: No: Do not add to previou s draw Performed By: #### 5 6101, 21206 ####[facility] [place] [address], [facility] POC GLUCOSE LABon 10-04-2017 Glucose mass conc 138 mg/dL High 70-100 [facility] Comment on above: Performed By: #### 36495 ####[facility] [place] [address], [place] Glucose mass conc 164 mg/dL High 70-100 [facility] Comment on above: Performed By: #### 50983 ####[facility] [place] [address], [place] Glucose mass conc 113 mg/dL High 70-100 [facility] Comment on above: Performed By: #### 49501 ####[facility] [place] [address], [place] Glucose mass conc 110 mg/dL High 70-100 [facility] Comment on above: Performed By: #### 26083 ####[facility] [place] [address], [facility] POC GLUCOSE LABon 10-03-2017 Glucose mass conc 101 mg/dL High 70-100 [facility] Comment on above: Performed By: #### 07796, 53713 ####[facility] [place] [address], [place] Glucose mass conc 114 mg/dL High 70-100 [facility] Comment on above: Performed By: #### 56040, 58757 ####[facility] [place] [address], [place] Glucose mass conc 122 mg/dL High 70-100 [facility] Comment on above: Performed By: #### 58093, 09728 ####[facility] [place] [address], [place] BASIC METABOLIC PANELon 09-15 Calcium mass conc 9.2 mg/dL Normal 8.6-10.3 [facility] Comment on above: Order Comment: No: Do not add to previou s draw Performed By: #### 0 0071, 68664 ####[facility] [place] [address], [place] Chloride molar conc 99 mmol/L Normal 98-107 [facility] Comment on above: Order Comment: No: Do not add to previou s draw Performed By: #### 0 0071, 26124 ####[facility] [place] [address], [place] CO2 molar conc 26 mmol/L Normal 21-31 [facility] Comment on above: Order Comment: No: Do not add to previou s draw Performed By: #### 0 0071, 57077 ####[facility] [place] [address], [place] Creatinine mass conc 0.96 mg/dL Normal 0.70-1.30 [facility] Comment on above: Order Comment: No: Do not add to previou s draw Performed By: #### 0 0071, 28453 ####[facility] [place] [address], [place] GFR/1.73 sq M predicted among blacks MDRD vol rate/area (S/P/Bld) mL/min/{1.73_m2} Normal >60 [facility] Comment on above: Order Comment: No: Do not add to previou s draw Performed By: #### 0 0071, 05241 ####[facility] [place] [address], [place] GFR/1.73 sq M predicted among non-blacks MDRD vol rate/area (S/P/Bld) mL/min/{1.73_m2} Normal >60 [facility] Comment on above: Order Comment: No: Do not add to previou s draw Performed By: #### 0 0071, 64841 ####[facility] [place] [address], [facility] Glucose mass conc 109 mg/dL High 70-100 [facility] Comment on above: Order Comment: No: Do not add to previou s draw Performed By: #### 0 0071, 44269 ####[facility] [id number], [facility] Potassium molar conc 3.5 mmol/L Normal 3.5-5.1 [facility] Comment on above: Order Comment: No: Do not add to previou s draw Performed By: #### 0 0071, 65469 ####[facility] [place] [address], [facility] Sodium molar conc 135 mmol/L Low 136-145 [facility] Comment on above: Order Comment: No: Do not add to previou s draw Performed By: #### 0 0071, 82998 ####[facility] [place] [address], [facility] Urea nitrogen mass conc 16 mg/dL Normal 7-25 [facility] Comment on above: Order Comment: No: Do not add to previou s draw Performed By: #### 0 0071, 41786 ####[facility] CBC COMPLETE BLOOD COUNTon 0 - Erythrocyte distribution width Auto Ratio (RBC) 12.6 % Normal 11.5-15.0 [facility] Comment on above: Order Comment: No: Do not add to previou s draw Performed By: #### 5 0608 ####[facility] [place] [address], [facility] Hematocrit Auto Volume Fraction (Bld) 45.2 % Normal 39.0-50.0 [facility] Comment on above: Order Comment: No: Do not add to previou s draw Performed By: #### 5 0608 ####[facility] [facility].[address] Hemoglobin mass conc (Bld) 15.4 g/dL Normal 13.0-17.0 [facility] Comment on above: Order Comment: No: Do not add to previou s draw Performed By: #### 5 0608 ####[facility].[address] MCH Auto Entitic mass (RBC) 28.4 pg Normal 27.0-33.0 [facility] Comment on above: Order Comment: No: Do not add to previou s draw Performed By: #### 5 0608 ####[facility] MCHC Auto mass conc (RBC) 34.1 g/dL Normal 32.0-35.0 [facility] Comment on above: Order Comment: No: Do not add to previou s draw Performed By: #### 5 0608 ####[facility] [facility].[address] MCV Auto Entitic volume (RBC) 83.4 fL Normal 82.0-98.0 [facility] Comment on above: Order Comment: No: Do not add to previou s draw Performed By: #### 5 0608 ####[facility] [facility].[address] Nucleated RBC/100 WBC Ratio (Bld) 0 % Normal 0-0 [facility] Comment on above: Order Comment: No: Do not add to previou s draw Performed By: #### 5 0608 ####[address] PLAT CNT 311 10*3/uL Normal 150-400 [facility] Comment on above: Order Comment: No: Do not add to previou s draw Performed By: #### 5 0608 ####[facility] [facility], [place] [address] [place] [address] RBC Auto #/vol (Bld) 5.42 10*6/uL Normal 4.20-5.70 [facility] Comment on above: Order Comment: No: Do not add to previou s draw Performed By: #### 5 0608 ####[facility] [place] [address] WBC Auto #/vol (Bld) 11.01 10*3/uL High 4.00-10.60 [facility] Comment on above: Order Comment: No: Do not add to previou s draw Performed By: #### 5 0608 ####[address] CHEST AND LATERALon 10-03-19 [facility]AL [facility] Rdky[address]mn[address] [place], [place] [id number] ========Patient Name: MONICA SQUIRES : 1965Sex: MAge: Race: WhiteMRN: [id number]. Location: [id number] Status: OVisit #: [id number] Date: 10/02/2017 9:55:00 AMCompleted Date: 10/02/2017 10:51 AMRequesting Provider: SINGH SIMON Attending Provider: FRED MISHRA Report Copy To: Signs & Symptoms: Chest PainHistory: Patient history not availableComments: Other, ; Call/page results to [id number]: CHEST AND LATERALAccession #: [id number] CHEST AND LATERAL 10/02/2017 10:51 AM EDT SIGNS AND SYMPTOMS: Chest Pain TECHNOLOGIST COMMENTS: Patient states irregular EKG during stress test complaint of chest pain QUESTION FOR THE RADIOLOGIST: Other, ; Call/page results to [id number] PROTOCOL: AP(PA) and Lateral views were obtained. COMPARISON: None FINDINGS: There is no pulmonary consolidation, pleural effusion, or pneumothorax. The cardiomediastinal silhouette and pulmonary vasculature are within normal limits. No acute osseous abnormalities. IMPRESSION: No radiographic evidence of acute cardiopulmonary process. Approved by:Frederick Roman on 10/02/2017 11:09 AM EDT. I, Andrei Lui, have reviewed the images and report and concur with these findings. Electronically signed by:Andrei Lui. Transcribed by: [email or web address], User Resident: FREDERICK ROMANElectronically Signed by: ANDREI LUI @ 10/02/2017 04:40 PMI personally read this/these film(s) with this resident Normal [facility] Comment on above: Order Comment: No: Do not add to previou s draw MAGNESIUM BLOODon 10-02-2017 Magnesium mass conc 1.8 mg/dL Low 1.9-2.7 [facility] Comment on above: Order Comment: No: Do not add to previou s draw Performed By: #### 0 [id number], [id number] ####[facility] [facility] [place] [address], [facility] POC GLUCOSE LABon 10-02-2017 Glucose mass conc 115 mg/dL High 70-100 [facility] Comment on above: Performed By: #### [id number], [id number] ####[facility] [facility] [place] [address], [facility] Glucose mass conc 149 mg/dL High 70-100 [facility] Comment on above: Performed By: #### [id number], [id number] ####[facility] [facility] [place] [address], [facility] Glucose mass conc 102 mg/dL High 70-100 [facility] Comment on above: Performed By: #### [id number] ####[facility] [facility] [place] [address], [facility] Glucose mass conc 97 mg/dL Normal 70-100 [facility] Comment on above: Performed By: #### [id number] ####[facility] [place] [address], [facility] TROPONIN-Ion 10-02-2017 Troponin I.cardiac mass conc 0.00 ng/mL Normal 0.00-0.04 [facility] Comment on above: Order Comment: No: Do not add to previou s draw Result Comment: REFE RENCE RANGES: 0.00 - 0.14 ng/ml NEGATIVE 0.15 - 0.25 ng/ml INDETERMINATE > 0.25 ng/ml INDICATIVE OF AN M.I. Performed By: #### 5 [id number], [id number] ####[facility] [place] [address], [facility] Troponin I.cardiac mass conc 0.00 ng/mL Normal 0.00-0.04 [facility] Comment on above: Order Comment: No: Do not add to previou s drawQ6 HRS, PER MAAME BLANTON Result Comment: REFE RENCE RANGES: 0.00 - 0.14 ng/ml NEGATIVE 0.15 - 0.25 ng/ml INDETERMINATE > 0.25 ng/ml INDICATIVE OF AN M.I. Performed By: #### 3 [id number] ####[facility] [place] [address], [facility] Troponin I.cardiac mass conc 0.01 ng/mL Normal 0.00-0.04 [facility] Comment on above: Order Comment: No: Do not add to previou s drawQ6 HRS, PER MAAME BLANTON Result Comment: REFE RENCE RANGES: 0.00 - 0.04 ng/ml NORMAL 0.05 - 0.50 ng/ml INDETERMINATE > 0.50 ng/ml CONSISTENT WITH AN M.I. Performed By: #### 3 [id number] ####[facility] [facility].[address] APTTon 10-01-2017 aPTT Coag time (Bld) 32.1 s Normal 25.0-35.0 [facility] Comment on above: Order Comment: No: Do not add to previou s draw Result Comment: ALL RESULTS MUST BE INTERPRETED WITH RESPECT TO BLOOD DRAWING ARTIFACTOR DILUTION ERROR OF ANTICOAGULANT AT THE TIME OF SAMPLING.THE APTT SHOULD NOT BE USED TO MONITOR UNFRACTIONATED HEPARIN THERAPY, THIS LABORATORY NO LONGER HAS AN ESTABLISHED THERAPEUTIC RANGE BASEDON THE APTT. IT IS RECOMMENDED THAT THE [facility] - HEPARIN ASSAY (ANTI-XAACTIVITY) BE USED FOR THIS PURPOSE. Performed By: #### 5 [id number], [id number] ####[facility] [facility].[address] PROTHROMBIN TIMEon 8 INR Coag RelTime (PPP) 1.02 {INR} Normal 0.91-1.16 [facility] Comment on above: Order Comment: No: Do not add to previou s [id number]- PATIENT DOES NOT HAVE I.D. BAND YET -TECH AB Result Comment: ACCC P RECOMMENDED INR FOR WARFARIN THERAPY CONDITION INRPROPHYLAXIS OF VENOUS THROMBOSIS 2-3(HIGH-RISK SURGERY)TREATMENT OF VENOUS THROMBOSIS 2-3TREATMENT OF PULMONARY EMBOLISM 2-3PREVENTION OF SYSTEMIC EMBOLISM: 2-3 ACUTE MYOCARDIAL INFARCTION TISSUE HEART VALVES VALVULAR HEART DISEASE ATRIAL FIBRILLATION RECURRENT SYSTEMIC EMBOLISMMECHANICAL HEART VALVE 2.5-3.5 FROM: ORAL ANTICOAGULANTS. MECHANISM OF ACTION, CLINICALEFFECTIVENESS, AND OPTIMAL THERAPEUTIC RANGE. [id number]. Performed By: #### 5 [id number], [id number] ####[facility] [facility].[address] Prothrombin time (PT) Coag time (PPP) 13.4 s Normal 12.3-14.8 [facility] Comment on above: Order Comment: No: Do not add to previou s [id number]- PATIENT DOES NOT HAVE I.D. BAND YET -TECH AB Result Comment: ALL RESULTS MUST BE INTERPRETED WITH RESPECT TO BLOOD DRAWING ARTIFACTOR DILUTION ERROR OF ANTICOAGULANT AT THE TIME OF SAMPLING. Performed By: #### 5 [id number], [id number] ####[facility] [facility].[address] TROPONIN-Ion 10-01-2017 Troponin I.cardiac mass conc 0.00 ng/mL Normal 0.00-0.04 [facility] Comment on above: Order Comment: No: Do not add to previou s draw Result Comment: REFE RENCE RANGES: 0.00 - 0.14 ng/ml NEGATIVE 0.15 - 0.25 ng/ml INDETERMINATE > 0.25 ng/ml INDICATIVE OF AN M.I. Performed By: #### 3 [id number] ####[facility] Vital Signs Date Time Vital Sign Value Performing Clinician Yvrosei felice 03-25-2023 14:13-0500 Body mass index (BMI) [Ratio] 34.12 kg/m2 Dann Johnson MD Work Phone: [facility] 03-25-2023 14:13-050 Body weight 123.83 kg Dann Johnson MD Work Phone: [facility] 03-25-2023 14:13-050 Diastolic blood pressure 82 mm[Hg] Dann Johnson MD Work Phone: [facility] 03-25-2023 14:13-0500 Heart rate 67 /min Dann Johnson MD Work Phone: [facility] 03-25-2023 14:13-0500 SaO2% (BldA) [Mass fraction] 95 % Dann Johnson MD Work Phone: [facility] 03-25-2023 14:13-0500 Systolic blood pressure 136 mm[Hg] Dann Johnson MD Work Phone: [facility] Encounters Encounter Date Encounter Type Care Provider Facility Start: 03-25-2023 End: 03-25-2023 ambulatory DANN JOHNSON Not Available Start: 03-25-2023 End: 03-25-2023 Office outpatient visit 25 minutes Dann Johnson MD Work Phone: [facility] Comment on above: Type 2 diabetes rickey itus with other specified complication, with long-term current use of insulin (CMS/[facility]); 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.4); Atherosclerotic heart disease of [place] coronary artery with other forms of angina pectoris (I25.118); Type 2 diabetes mellitus with hyperglycemia, with long-term current use of insulin (CMS/[facility]) Start: 03-24-2023 Chart abstracting Dann Johnson MD Work Phone: [facility] Start: 03-10-2023 End: 03-10-2023 ambulatory [facility] Start: 02-10-2023 End: 02-10-2023 ambulatory DANN JOHNSON Not Available Start: 01-27-2023 End: 01-27-2023 ambulatory KANWAL RODRIGUEZ Not Available Start: 05-12-2021 End: 05-13-2021 ambulatory MYRNA REBECCA Facility:[facility]1 Start: 11-29-2020 ambulatory [facility] Facility :[facility] Start: 11-01-2017 End: 11-02-2017 Patient encounter DEFAULT PHYSICIAN Facility:[facility] Start: 10-01-2017 End: 10-05-2017 Evaluation and management of inpatient FRED MISHRA Facility:[facility] Procedures Date Procedure Procedure Detail Performing Clinician Start: 03-25-2023 Hemoglobin glycosyla jessica a1c Dann Johnson MD Work Phone: Start: 10-04-2017 DILATION OF 1 COR AR T WITH DRUG-ELUT INTRA, PERC APPROACH VERNA YAÑEZ Start: 11-09-2016 Colonoscopy Dann Johnson MD Work Phone: Plan of Treatment Date Care Activity Detail Author Start: 11-09-2026 Screening for malign ant neoplasm of colon [facility] Start: 08-15-2023 Influenza vaccination Influenza Vacc ine (#1) [facility] Comment on above: Postponed from 10/16 (Other Patient Reasons) Start: 06-23-2023 Hemoglobin A1c measurement Diabetes: Hemoglobin A1C [facility] Start: 05-13-2023 End: 05-13-2023 Patient encounter procedure 05/13/2023 2:05 PM EDT Office Visit [facility] [address] [place] [id number] Kanwal Rodriguez MD [address] [place] [address] [facility] Start: 03-25-2023 End: 03-25-2024 Microalbumin/Creatinine panel in random Urine Microalbumin / creatinine urine ratio Lab Routine Type 2 diabetes mellitus with other specified complication, with long-term current use of insulin ([facility]) Expected: 03/25/2023 (Approximate), Expires: 03/25/2024 [facility] Work Phone: Comment on above: Expected: 03/25/2023 (Approximate), Expires: 03/25/2024 Start: 03-25-2023 End: 03-25-2023 Patient encounter procedure 03/25/2023 2:00 PM EST Office Visit [facility] [address] [facility] [address] [place] [id number] Dann Johnson MD [address] [place], [place] [id number] [facility] Start: 12-22-2022 Hemoglobin A1c measurement Diabetes: Hemoglobin A1C [facility] Start: 09-26-2022 Glaucoma screening Diabetes: R etinopathy Screening [facility] Start: 03-24-2022 Urine screening for protein Diabetes: Urine Protein Screening [facility] Start: 1965 Screening for malign ant neoplasm of colon [facility] Payers Date Payer Category Payer Medicaid [id number] 2022 Medicaid [place] [employer] [id number] 2022-Present [address] [place] [address] [id number] 1964 Unknown [id number] 1964 Unknown [id number] 1964 Unknown [id number] 1964 Unknown [id number] 1964 Unknown [id number] 1959 Self-pay 1959 Unknown [id number] Unknown Unknown [id number] Social History Date Type Detail Facility Start: 10-01-[address] [facility] Ex-smoker [facility] History of tobacco use Current smoker [facility] History of tobacco use Cigarette Smoker [facility] Start: 10-01-2022 Tobacco use and exposure Smokeless t obacco non-user [facility] Start: 03-24-2023 End: 03-25-2023 Alcohol intake Ex-drinker (finding) [facility] Start: 03-24-2023 End: 03-25-2023 History of Social function [facility] Start: 03-24-2023 End: 03-25-2023 Tobacco use panel [facility] Start: 10-01-2022 Tobacco Comment Quit tobacco 7 years ago [facility] Start: 1965 Sex Assigned At Not on file [facility] Start: 08-26-2022 Gender identity Identifies as male gender (finding) [facility] Medical Equipment Procedure Code Equipment Code Equipment Origin al Text Equipment Identifier Dates USE DIRECTED TWICE A DAY [id number] Start: 06-15-2022 History of Present illness Narrative 03-25-2023 Dann Johnson MD - 03/25/2023 2:29 PM Uma Johnson MD - 03/25/2023 2:29 PM Uma Johnson MD - 03/25/2023 2:28 PM Uma Johnson MD - 03/25/2023 2:00 PM EST Note Date & Type Note Facility 03-25-2023 History of Presen t illness Narrative Associated Problem(s): Atherosclerotic heart disease of [place] coronary artery with other forms of angina pectoris (CMS/HCC) Reviewed Labs and has seen Civil Engineering Designer In February Associated Problem(s): Type 2 diabetes mellitus (CMS/HCC) No Tobacco use Follow ADA 1800 diet low carbohydrate Continue Med Compliance Goal LDL less than 100 Goal BP 130/80 Goal HgbA1c < 7.0% Monitor Feet, monitor for infection Needs Exercise Yearly eye exams Prior to your visit today we reviewed your chart and outlined testing and treatment needed for your care. Reviewed poissble complications of diabetes including, loss of vision, kidney failure and increased risk of heart attacks and stroke. We made recommendations on how to control your blood sugars, and minimize your risk of these complications. We discussed your current barriers to a healthy living and importance of healthy diet and exercise. Associated Problem(s): intermediate (current) use of insulin (Z79.4) Adjust as needed to keep fasting less 120 Subjective Patient ID: Monica Squires is a 57 y.o. male who presents for Diabetes (Last A1c was 5.9). Pt sugars been running 85 to 90 A1c last time was 5.9% Current A1c 6.5% Diabetes He presents for his follow-up diabetic visit. He has type 2 diabetes mellitus. No MedicAlert identification noted. His disease course has been stable. There are no hypoglycemic associated symptoms. Pertinent negatives for hypoglycemia include no dizziness. There are no diabetic associated symptoms. Pertinent negatives for diabetes include no chest pain. There are no hypoglycemic complications. Symptoms are stable. There are no diabetic complications. Risk factors for coronary artery disease include diabetes mellitus, male sex and hypertension. Current diabetic treatment includes intensive insulin program, oral agent (monotherapy) and oral agent (dual therapy). He is compliant with treatment all of the time. He has not had a previous visit with a dietitian. He rarely participates in exercise. His home blood glucose trend is increasing steadily. An PALLAVI inhibitor/angiotensin II receptor megan is being taken. He does not see a trade economist.Eye exam is current. Current Outpatient Medications on File Prior to Visit Medication Sig Dispense Refill amLODIPine (Norvasc) 10 MG tablet Take 1 tablet by mouth in the morning. aspirin 81 MG EC tablet Take 1 tablet every day by oral route for 30 days. atorvastatin (Lipitor) 20 MG tablet TAKE ONE TABLET BY MOUTH ONCE DAILY 30 tablet 0 carvedilol (Coreg) 25 MG tablet TAKE 12 TABLET BY MOUTH TWICE A DAY doxazosin (Cardura) 2 MG tablet Take 1 tablet by mouth in the morning. Easy Comfort Pen Lincoln 31G X 5 MM mis USE DIRECTED TWICE A DAY furosemide (Lasix) 20 MG tablet Take 1 tablet by mouth in the morning. Lantus SoloStar 100 UNIT/ML pen INJECT 25 UNITS SUB-Q DAILY (55 DAYS) 15 mL 2 losartan (Cozaar) 100 MG tablet Take 1 tablet by mouth in the morning. metFORMIN (Glucophage) 500 MG tablet TAKE ONE TABLET BY MOUTH TWICE A DAY 60 tablet 11 nitroglycerin (Nitrostat) 0.[address] 1 TABLET UNDER YOUR TONGUE EVERY 5 MINUTES NEEDED FOR CHEST PAIN FOR 3 DOSES ONLY. IF NO RELIEF, CALL 911 Josiahulicity 1.5 MG/0.5ML solution pen-injector INJECT ONE INJECTION VIA SUBCUTANEOUS ROUTE ONCE WEEKLY 2 mL 11 zolpidem (Ambien) 10 MG tablet TAKE ONE TABLET BY MOUTH ONCE DAILY AT BEDTIME NEEDED 30 tablet 3 [DISCONTINUED] clopidogrel (Plavix) 75 MG tablet Take 1 tablet by mouth in the morning. [DISCONTINUED] minocycline 100 MG capsule Take 1 capsule, by mouth, bid, 10 days 20 capsule 0 No current facility-administered medications on file prior to visit. No Known Allergies Social History Tobacco Use Smoking status: Former Types: Cigarettes Smokeless tobacco: Never Tobacco comments: Quit tobacco 7 years ago Substance Use Topics Alcohol use: Not Currently No family history on file. Past Medical History: Diagnosis Date Cancer (CMS/HCC) Diabetes mellitus (CMS/HCC) Echo 03/27/2019 Echo Global LV Systolic function is normal, Mild LVH, No valvular H/O myocardial perfusion scan 11/01/2018 Myocardial Perfusion Study Shows no evidence of ischemia LVEF was 60% History of being hospitalized 09/2017 [facility]: CAD, stent placement History of stress test 10/02/2017 shows Myocardial Perfusion shows evidence of ischemia inferior defect EF 63% History of stress test 11/01/2017 Normal myocardial perfusion study Normal global left ventricular systolic function. EF 74% Melanoma in situ (CMS/HCC) 04/2021 left upper arm Nuclear Med Scan 11/18/2017 shows inferior hypoperfusion Moderate to large Defect Inferior region U/S 03/06/2019 U/S RUQ No acute or suspicious findings, mild fatty infiltration of the liver Past Surgical History: Procedure Laterality Date CARDIAC SURGERY COLONOSCOPY [address] [facility] [address] dinh diverticulosis coli internal hemorrhoids CORONARY STENT PLACEMENT 10/05/2019 OTHER SURGICAL HISTORY 10/04/2017 Stent Mid Left Artial Disease with 85% Blockage Balloon Angioplasty and Drug Eluting Stent mid LAD SKIN CANCER EXCISION 04/15/2021 [facility] Visit Vitals BP 136/82 Pulse 67 Wt 273 lb SpO2 95% BMI 34.12 kg/m Smoking Status Former BSA 2.56 m Review of Systems Constitutional: Negative for chills and fever. Respiratory: Negative for shortness of breath. Cardiovascular: Negative for chest pain. Gastrointestinal: Negative for constipation, diarrhea, nausea and vomiting. Musculoskeletal: Negative for back pain and gait problem. Neurological: Negative. Negative for dizziness and facial asymmetry. Objective Physical Exam Vitals reviewed. Constitutional: Appearance: Normal appearance. HENT: Head: Normocephalic. Cardiovascular: Rate and Rhythm: Normal rate and regular rhythm. Pulses: Normal pulses. Pulmonary: Effort: Pulmonary effort is normal. Breath sounds: Normal breath sounds. Neurological: General: No focal deficit present. Mental Status: He is alert and oriented to person, place, and time. Psychiatric: Mood and Affect: Mood normal. Assessment/Plan Problem List Items Addressed This Visit Circulatory Atherosclerotic heart disease of [place] coronary artery with other forms of angina pectoris (CMS/HCC) Reviewed Labs and has seen Civil Engineering Designer In February Endocrine/Metabolic Type 2 diabetes mellitus (CMS/HCC) No Tobacco use Follow ADA 1800 diet low carbohydrate Continue Med Compliance Goal LDL less than 100 Goal BP 130/80 Goal HgbA1c < 7.0% Monitor Feet, monitor for infection Needs Exercise Yearly eye exams Prior to your visit today we reviewed your chart and outlined testing and treatment needed for your care. Reviewed poissble complications of diabetes including, loss of vision, kidney failure and increased risk of heart attacks and stroke. We made recommendations on how to control your blood sugars, and minimize your risk of these complications. We discussed your current barriers to a healthy living and importance of healthy diet and exercise. Relevant Orders Microalbumin / creatinine urine ratio POCT Glycated hemoglobin, total (Completed) Other intermediate (current) use of insulin (Z79.4) Adjust as needed to keep fasting less 120 Follow up in about 6 months (around 09/23/2023) for Diabetes. documented in this encounter [facility] Progress note 03-10-2023 Note Date & Type Note Facility 03-10-2023 Note OR Cardiology - [facility] Subjective Monica Squires is a 57 y.o. year old male patient being seen for 1 year follow up CAD, atypical chest pain, hypertension, and hyperlipidemia. No lab work since last visit. LE edema occurs more often since he hasn't been riding his bike the past few months. Denies chest pain, SOB, and palpitations. Had more melanoma removed recently. Patient Active Problem List Diagnosis Coronary arteriosclerosis Edema of lower extremity Essential (primary) hypertension Hyperglycemia Hyperglycemia due to type 2 diabetes mellitus (CMS/HCC) Hypertriglyceridemia Insomnia Lipoprotein deficiency disorder Liver anomaly, congenital Nephrolithiasis Tension headache Family History Problem Relation Name Age of Onset Other (parkinson's) Mother Hypertension Father Coronary artery disease Father Social History Tobacco Use Smoking status: Former Types: Cigarettes Smokeless tobacco: Never Substance Use Topics Alcohol use: Yes Comment: occasional HPI Monica is seen in follow-up. He is a 57-year-old man who was admitted with unstable angina in September 2017. A stress test showed lateral ischemia and ejection fraction was 63% by stress test. Cardiac catheterization showed high-grade stenosis in the mid LAD to which she underwent a drug-eluting stent. There was 80% stenosis in the apical LAD and moderate disease elsewhere. This was managed medically. He then underwent a stress test in October 2017 that was normal. Another stress test in October 2018 did not show ischemia. In addition he has prior history of hypertension and diabetes. Today he says he has been doing well. he denies chest pain, shortness of breath, palpitations, dizziness, syncope and leg edema. he has good exercise tolerance. There is no claudication. Review of Systems Cardiovascular: Negative for chest pain, dyspnea on exertion, irregular heartbeat, leg swelling, orthopnea, palpitations and syncope. Respiratory: Negative for cough and shortness of breath. Musculoskeletal: Negative for arthritis, falls and neck pain. Gastrointestinal: Negative for diarrhea and dysphagia. Neurological: Negative for light-headedness and loss of balance. Objective Visit Vitals BP 116/70 (BP Location: Left arm, Patient Position: Sitting) Pulse 78 Ht 1.93 m (6' 4 ) Wt 123 kg (271 lb) SpO2 94% BMI 32.99 kg/m??? Smoking Status Former BSA 2.57 m??? Physical Exam Constitutional: Appearance: He is well-developed. He is not ill-appearing. HENT: Head: Normocephalic and atraumatic. Nose: Nose normal. Eyes: General: No scleral icterus. Pupils: Pupils are equal, round, and reactive to light. Neck: Thyroid: No thyromegaly. Vascular: No JVD. Cardiovascular: Rate and Rhythm: Normal rate and regular rhythm. Pulses: Radial pulses are 2+ on the right side and 2+ on the left side. Heart sounds: Normal heart sounds. No murmur heard. No friction rub. No gallop. Pulmonary: Effort: Pulmonary effort is normal. No respiratory distress. Breath sounds: Normal breath sounds. No wheezing or rales. Chest: Chest wall: No tenderness. Abdominal: General: Bowel sounds are normal. There is no distension. Palpations: Abdomen is soft. Tenderness: There is no abdominal tenderness. Musculoskeletal: General: No swelling. Cervical back: Neck supple. Skin: General: Skin is warm and dry. Neurological: General: No focal deficit present. Mental Status: He is alert and oriented to person, place, and time. Psychiatric: Mood and Affect: Mood normal. Behavior: Behavior is cooperative. Judgment: Judgment normal. Allergies No Known Allergies Medications Current Outpatient Medications: amLODIPine (Norvasc) 10 mg tablet, TAKE ONE TABLET BY MOUTH ONCE DAILY, Disp: 90 tablet, Rfl: 3 aspirin 81 mg EC tablet, in the morning., Disp: , Rfl: atorvastatin (Lipitor) 80 mg tablet, atorvastatin 80 mg tablet TAKE ONE TABLET BY MOUTH ONCE DAILY, Disp: , Rfl: carvedilol (Coreg) 12.5 mg tablet, TAKE 1 TABLET (12.5 MG) BY MOUTH WITH BREAKFAST AND WITH EVENING MEAL., Disp: 180 tablet, Rfl: 3 doxazosin (Cardura) 2 mg tablet, TAKE ONE TABLET BY MOUTH ONCE DAILY, Disp: 30 tablet, Rfl: 0 dulaglutide (Trulicity) 1.5 mg/0.5 mL pen injector, Trulicity 1.5 mg/0.5 mL subcutaneous pen injector INJECT ONCE WEEKLY DIRECTED VIA SUBCUTANEOUS ROUTE, Disp: , Rfl: furosemide (Lasix) 20 mg tablet, furosemide 20 mg tablet TAKE ONE TABLET BY MOUTH ONCE DAILY, Disp: , Rfl: insulin glargine (Lantus) 100 unit/mL (3 mL) pen, Lantus Solostar U-100 Insulin 100 unit/mL (3 mL) subcutaneous pen INJECT 36 UNITS DAILY (40 DAYS), Disp: , Rfl: losartan (Cozaar) 100 mg tablet, Take 1 tablet (100 mg) by mouth in the morning., Disp: 90 tablet, Rfl: 3 metFORMIN (Glucophage) 500 mg tablet, metformin 500 mg tablet TAKE ONE TABLET BY MOUTH TWICE A DAY WITH FOOD, Disp: , Rfl: nitroglycerin (Nitrostat (more content not included)... [facility] Evaluation note Note Date & Type Note Facility Evaluation note Diagnosis Type 2 diabetes mellitus with other specified complication, with long-term current use of insulin ([facility]) intermediate (current) use of insulin (Z79.4) Atherosclerotic heart disease of [place] coronary artery with other forms of angina pectoris (I25.118) documented in this encounter [facility] Summary Purpose Family History No Family History Records FoundNo Family History Records FoundNo Family History Records FoundNo Family History Records FoundNo Family History Records Found Advance Directives No Advanced Directives Records FoundNo Advanced Directives Records FoundNo Advanced Directives Records FoundNo Advanced Directives Records FoundNo Advanced Directives Records Found Additional Source Comments (unrecognized sect ion and content) No Status Records FoundNo Status Records FoundNo Status Records FoundNo Status Records FoundNo Status Records Found INFORMATION SOURCE (unrecogn ized section and content) DATE CREATED AUTHOR 11/28/2017 [facility] DATE CREATED AUTHOR AUTHOR'S ORGANIZ ATION 03/25/2021 [facility] dical Specialist DATE CREATED AUTHOR AUTHOR'S ORGANIZ ATION 05/17/2021 [facility] DATE CREATED AUTHOR AUTHOR'S ORGANIZ ATION 03/11/2023 [facility] DATE CREATED AUTHOR AUTHOR'S ORGANIZ ATION 03/26/2023 [facility] dical Specialists EPIC Care Teams (unrecognized sec tion and content) Catalog Librarian Relationship Specialty Start Date End Date Dann Johnson MD [address] [facility] [address] [place] [address] PCP - General Family Medicine 06/23/22 Catalog Librarian Relationship Specialty Start Date End Date Dann Johnson MD [address] [facility] [address] [place] [address] PCP - General Family Medicine 06/23/22 Reason for Visit (unrecogniz ed section and content) Reason Comments Diabetes Last A1c was 5.9 FOR RECORDS PERTAINING TO PATIENTS WHO ARE OR HAVE BEEN ENROLLED IN A CHEMICAL DEPENDENCY/SUBSTANCEABUSE PROGRAM, SOME INFORMATION MAY BE OMITTED. This clinical summary was aggregated from multiple sources. Caution should be exercised in using it in the provision of clinical care. This summary normalizes information from multiple sources, and as a consequence, information in this document may materially change the coding, format and clinical context of patient data. In addition, data may be omitted in some cases. CLINICAL DECISIONS SHOULD BE BASED ON THE PRIMARY CLINICAL RECORDS. [employer] provides no warranty or guarantee of the accuracy or completeness of information in this document.
--- NOTE | 2023-09-06 14:59 | ECG_ITS ---
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
--- NOTE | 2023-09-06 14:59 | XR_ITS ---
The [address] [address] Patient Name: MONICA MONTANO MRN: [id number] date: 1965 Sex: M Assigned Patient Location: ER Current Patient Location: ER Accession/Order Number: [id number] Exam Date: 09/06/2023 15:10 Report Date: 09/06/2023 16:25 At the request of: NITZA SANZ Procedure: XR chest 2V EXAM: Chest x-ray HISTORY: . cp . COMPARISON: 10/01/2017 TECHNIQUE: Frontal and lateral chest FINDINGS: Heart and vascularity are unremarkable. Lungs are free of focal infiltrates. No bony abnormality is appreciated. EKG leads overlie the chest. XR/XR chest 2V IMPRESSION: No acute heart or lung disease identified. Electronically authenticated by: JUVE GUEVARA Date: 09/06/2023 16:25
[2023-09-06 15:11] LABS: Basophils Absolute Auto 0.1 10^3/uL (0.0-0.1); Basophils Percent Auto 0.6 % (0.2-2.0); Eosinophils Absolute Auto 0.1 10^3/uL (0.0-0.7); Eosinophils Percent Auto 1.1 % (0.9-7.0); Hematocrit 39.5 % (42.0-54.0); Hemoglobin 13.4 g/dL (14.0-18.0); Immature Granulocytes Abs Auto 0.02 10^3/uL (0.00-0.03); Immature Granulocytes Pct Auto 0.2 % (0.0-0.5); Lymphocytes Absolute Auto 1.9 10^3/uL (1.2-3.8); Lymphocytes Percent Auto 21.6 % (20.5-60.0); Mean Corpuscular HGB Conc 33.9 g/dL (29.9-35.2); Mean Corpuscular Hemoglobin 28.2 pg (25.9-34.0); Mean Platelet Volume 10.3 fL (9.5-13.5); Monocytes Percent Auto 11.3 % (1.7-12.0); Neutrophils Absolute Auto 5.7 10^3/uL (1.4-6.5); Neutrophils Percent Auto 65.2 % (43.0-75.0); Platelet Count 284 10^3/uL (150-450); Red Blood Count 4.76 10^6/uL (4.70-6.10); White Blood Count 8.8 10^3/uL (4.0-11.0)
[2023-09-06 15:30] LABS: Alanine Aminotransferase 30 U/L (16-63); Albumin Globulin Ratio 0.9; Albumin Level 3.5 g/dL (3.4-5.0); Alkaline Phosphatase 120 U/L (46-116); Anion Gap 14.3; Aspartate Amino Transferase 18 U/L (15-37); BUN Creatinine Ratio 13.6; Bilirubin Total 0.4 mg/dL (0.2-1.0); Calcium 8.3 mg/dL (8.5-10.1); Carbon Dioxide 25.1 mmol/L (21.0-32.0); Chloride 101 mmol/L (98-107); Estimated GFR (African America >60 (>=60); Estimated GFR (Non-African Ame >60 (>=60); Globulin 3.9 g/dL; Glucose 138 mg/dL (74-106); Potassium 3.4 mmol/L (3.5-5.1); Sodium 137 mmol/L (136-145); Total Protein 7.4 g/dL (6.4-8.2); Troponin I High Sensitivity 8.2 pg/mL (4.0-76.1)
[2023-09-06] MEDS: ASPIRIN 81 MG TAB.CHEW 162 MG PO (15:33)
[2023-09-06] MEDS: POTASSIUM BICARBONATE/CIT 25 MEQ TABLET EFF 50 MEQ PO (16:56)
== END 2023-09-06 17:02 | disposition home or self-care (01) ==
PROVIDERS: Emergency Provider Emergency Medicine; PCP Family Medicine
DX: R07.9 Chest pain, unspecified (principal); E87.6 Hypokalemia; Z79.82 Long term (current) use of aspirin
CPT/HCPCS: 36415; 71046; 80053; 83690; 84484; 85025; 93005; 99285

== ENCOUNTER 2023-09-29 07:42 | Outpatient (OUT) | payer MEDICAID, SELFPAY ==
--- OUTSIDE RECORDS SUMMARY | 2023-09-29 07:44 | XMS_ITS | CCD ---
Author Organization [facility] Care Team Providers Care Fertilizer Supervisor Name Role Phone FRED MISHRA Unavailable Unavailable DANN JOHNSON Unavailable Unavailable RENNO, ANAS Unavailable Unavailable RENNO, ANAS Unavailable Unavailable GA Unavailable Unavailable UNKNOWN, PROVIDER Unavailable Unavailable PHYSICIAN, DEFAULT Unavailable Unavailable PHYSICIAN, DEFAULT Unavailable Unavailable DANN JOHNSON Unavailable Unavailable MYRNA FERNANDEZ Admitting Unavailable MYRNA FERNANDEZ Attending Unavailable ALEX, DR CAMPBELL Primary Care Unavailable MYRNA FERNANDEZ Admitting Unavailable MYRNA FERNANDEZ Attending Unavailable ALEX, DR CAMPBELL Primary Care Unavailable MYRNA FERNANDEZ Consulting Unavailable DANN JOHNSON Attending Unavailable KANWAL RODRIGUEZ Attending Unavailable Dann Johnson MD Primary Care Provider [phone] MYRNA FERNANDEZ Attending Unavailable VERNA YAÑEZ Attending Unavailable Medications Current Medications Medication Drug Class(es) Dates [...] complication, with long-term current use of insulin ([facility]) INJECT ONE INJECTION VIA SUBCUTANEOUS ROUTE ONCE [...] mellitus with other specified complication, unspecified whether shelter insulin use ([facility]) INJECT 25 UNITS SUB-Q DAILY (55 DAYS) [...] 2 diabetes mellitus with hyperglycemia, 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 ([facility]) TAKE ONE TABLET BY MOUTH TWICE A [...] tablet (3 sources) gamma-Aminobutyric Acid-ergic Agonist Start: 11-27-202 3 take 1 tablet by mouth once [...] disease (20 sources) Atherosclerotic heart disease of [place] coronary artery without angina pectoris; Translations: [Atherosclerotic heart disease of [place] coronary artery with unstable angina pectoris] Onset: 10-01-2017 Chronic Diabetes mellitus with complications (8 sources) Hyperglycemia [...] lipid metabolism (9 sources) Hyperlipidemia, unspecified; Translations: [Hypertriglyceridemia] Onset: 05-10-2017 09-17-2022 Chronic Esophageal disorders (3 sources) Gastroesophageal reflux disease; Translations: [Gastro-esophageal reflux disease without esophagitis] Onset: 04-04-2007 09-17-2022 Chronic Essential hypertension (6 sources) Essential (primary) hypertension; Translations: [Essential hypertension] Onset: 07-09-2015 09-17-2022 Chronic Fluid and electrolyte disorders (1 source) Hypokalemia; Translations: [HYPOKALEMIA] Onset: 10-01-2017 Episodic Headache; including migraine (3 sources) Tension-type headache; Translations: [Tension-type headache, unspecified, not intractable] Onset: 07-09-2015 09-17-2022 Chronic Melanomas of skin (3 sources) Melanoma in situ of left upper limb, including shoulder; Translations: [Malignant melanoma of skin of upper limb, including shoulder] Onset: 09-17-2022 09-17-2022 Chronic Nonspecific chest pain (2 sources) Other chest pain; Translations: [Other chest pain] Onset: 09-07-2023 Episodic Osteoarthritis (3 sources) Localized, primary osteoarthritis of the hand; Translations: [Primary osteoarthritis, unspecified hand] Onset: 09-17-2022 09-17-2022 Chronic Other aftercare (4 sources) Long-term current use of insulin; Translations: [custodial (current) use of insulin] Onset: 03-25-2023 03-25-2023 [...] [Calculus of kidney] Onset: 03-11-2016 09-17-2022 Episodic Coronary atherosclerosis and other heart disease (2 sources) Presence of coronary angioplasty implant and graft; Translations: [Presence of coronary angioplasty implant and graft] Onset: 03-10-2023 Episodic Diabetes mellitus without complication (6 sources) [...] Test Name Value Interpretation Reference Range Facility Office Visiton 09-07-2023 Follow-up visit [id number] Dasha Squires 1965 M Date Provider Department Center 09/07/2023 MYRNA HOFFMAN [facility] Family History Problem Relation Age of Onset Other Mother Hypertension Father Coronary artery disease Father Family Status - Relation Status Age at Mother Father Level of Service:66258 [place] OFFICE/OUTPATIENT ESTABLISHED MOD MDM 30 MIN Reason for Visit and Comments: Coronary Artery Disease [187] Normal [facility] - Hematology and Cell countson 03-25-2023 HbA1c (Bld) [Mass fraction] 6.5 % [facility] No Panel Informationon 03-25 Interpretation and review of laboratory results Normal [facility] Office Visiton 03-10-2023 Follow-up visit [id number] Dasha Squires 1965 M Date Provider Department Center 03/10/2023 VERNA LUA [facility] Family History Problem Relation Age of Onset Other Mother Hypertension Father Coronary artery disease Father Family Status - Relation Status Age at Mother Father Level of Service:28795 [place] OFFICE/OUTPATIENT ESTABLISHED LOW MDM 20 MIN Normal [facility] 36on 03-03-2023 35 Approving, but needs appt for additional refills. Normal [facility] LIPID PROFILEon 05-12-2021 CHOL-HDL RATIO NORM SEE BELOW Normal [facility] Comment on above: Result Comment: 3.3 - 4.4 LOW RISK 4.4 - 7.1 AVERAGE RISK 7.1 - 11.0 MODERATE RISK >11.0 HIGH RISK Performed By: #### L IPID, CMP #### [facility] [address] [address] [address] Suman Montes Cholesterol [Mass/Vol] 100 mg/dL Normal <=200 [facility] Comment on above: Performed By: #### LIPID, CMP #### [facility] [address] [address] [address] Suman Montes Cholesterol in HDL [Mass/Vol] 39 mg/dL Critically low 40-60 [facility] Comment on above: Performed By: #### LIPID, CMP #### [facility] [address] [place] [address] Dr. Suman Montes Cholesterol in LDL [Mass/Vol] 43.8 mg/dL Normal [facility] Comment on above: Performed By: #### LIPID, CMP #### [facility] [address] [address] [address] Suman Montes Cholesterol.tota l/Cholesterol in HDL [Mass ratio] 2.6 {ratio} Normal [facility] Comment on above: Performed By: #### LIPID, CMP #### [facility] [address] [place] [address] Dr. Suman Montes HDL NORMAL > or = 60 mg/dl - LO W CARDIOVASCULAR RISK <40 mg/dl - HIGH CARDIOVASCULAR RISK Normal [facility] Comment on above: Performed By: #### LIPID, CMP #### [facility] [address] [address] [address] Suman Montes LDL CALC NORMAL SEE BELOW Normal [facility] Comment on above: Result Comment: <100 mg/dl OPTIMAL 100 - 129 mg/dl NEAR OR ABOVE OPTIMAL 130 - 159 mg/dl BORDERLINE HIGH 160 - 189 mg/dl HIGH >190 mg/dl VERY HIGH Performed By: #### L IPID, CMP #### [facility] [address] [place] [address] Dr. Suman Montes Triglyceride [Mass/Vol] 86 mg/dL Normal <=150 [facility] Comment on above: Performed By: #### LIPID, CMP #### [facility] [address] [address] [address] Suman Montes VLDL CALC 17.2 mg/dL Normal [facility] Comment on above: Performed By: #### LIPID, CMP #### [facility] [address] [address] [address] Suman Montes PROF 14(COMP METB)on 022 Albumin [Mass/Vol] 3.9 g/dL Normal 3.4-5.0 [facility] Comment on above: Performed By: #### LIPID, CMP #### [facility] [address] [place] [address] Dr. Suman Montes Albumin/Globulin [Mass ratio] 0.9 {ratio} Normal [facility] Comment on above: Performed By: #### LIPID, CMP #### [facility] [address] [place] [address] Dr. Suman Montes ALP [Catalytic activity/Vol] 136 U/L Critically high 46-116 [facility] Comment on above: Performed By: #### LIPID, CMP #### [facility] [address] [place] [address] Dr. Suman Montes ALT [Catalytic activity/Vol] 23 U/L Normal 16-63 [facility] Comment on above: Performed By: #### LIPID, CMP #### [facility] [address] [place] [address] Dr. Suman Montes Anion gap [Moles/Vol] 11.9 mmol/L Normal [facility] Comment on above: Performed By: #### LIPID, CMP #### [facility] [address] [place] [address] Dr. Suman Montes AST [Catalytic activity/Vol] 13 U/L Critically low 15-37 [facility] Comment on above: Performed By: #### LIPID, CMP #### [facility] [address] [place] [address] Dr. Suman Montes Bilirubin [Mass/Vol] 0.5 mg/dL Normal 0.2-1.3 [facility] Comment on above: Performed By: #### LIPID, CMP #### [facility] [address] [address] [address] Suman Montes Calcium [Mass/Vol] 8.7 mg/dL Normal 8.5-10.1 [facility] Comment on above: Performed By: #### LIPID, CMP #### [facility] [address] [address] [address] Suman Montes Chloride [Moles/Vol] 103 mmol/L Normal 98-107 [facility] Comment on above: Performed By: #### LIPID, CMP #### [facility] [address] [place] [address] Dr. Suman Montes CO2 [Moles/Vol] 28.8 mmol/L Normal 22.0-30.0 [facility] Comment on above: Performed By: #### LIPID, CMP #### [facility] [address] [place] [address] Dr. Suman Montes Creatinine [Mass/Vol] 0.97 mg/dL Normal 0.66-1.25 [facility] Comment on above: Performed By: #### LIPID, CMP #### [facility] [address] [place] [address] Dr. Suman Montes EGFR-AF TANZANIAN >60 Normal >=60 [facility] Comment on above: Performed By: #### LIPID, CMP #### [facility] [address] [place] [address] Dr. Suman Montes EGFR-NON AF TANZANIAN >60 Normal >=60 [facility] Comment on above: Performed By: #### LIPID, CMP #### [facility] [address] [place] [address] Dr. Suman Montes Globulin (S) [Mass/Vol] 4.2 g/dL Normal [facility] Comment on above: Performed By: #### LIPID, CMP #### [facility] [address] [place] [address] Dr. Suman Montes Glucose [Mass/Vol] 87 mg/dL Normal 74-106 [facility] Comment on above: Performed By: #### LIPID, CMP #### [facility] [address] [place] [address] Dr. Suman Montes Potassium [Moles/Vol] 3.7 mmol/L Normal 3.4-5.0 [facility] Comment on above: Performed By: #### LIPID, CMP #### [facility] [address] [address] [address] Suman Montes Protein [Mass/Vol] 8.1 g/dL Normal 6.1-8.2 [facility] Comment on above: Performed By: #### LIPID, CMP #### [facility] [address] [address] [address] Suman Montes Sodium [Moles/Vol] 140 mmol/L Normal 137-145 [facility] Comment on above: Performed By: #### LIPID, CMP #### [facility] [address] [address] [address] Suman Montes Urea nitrogen [Mass/Vol] 14.0 mg/dL Normal 7.0-18.0 [facility] Comment on above: Performed By: #### LIPID, CMP #### [facility] [address] [address] [address] Suman Montes Urea nitrogen/Creatin ine [Mass ratio] 14.4 mg/mg Normal [facility] Comment on above: Performed By: #### LIPID, CMP #### [facility] [address] [address] [address] Suman Montes Q - MICROALBUMIN,RANDOM URIN E (W/CREAT)on 03-24-2021 Albumin DL <= 20 mg/L (U) [Mass/Vol] 1.8 mg/dL Normal See Note: [facility] [employer] Comment on above: Order Comment: [facility]S Testing performed at: [email or web address], [facility], [address] [facility], [address] [place] [address], [place], [address], Sterile Process Tech: Toi Dey MD [facility] Collection Date/Time: [id number] [facility] Results Received Date/Time: [facility] Reported Date/Time: Result Comment: Refe rence Range: Reference Range Not established Performed By: #### 6 517X #### [facility] Default [address] [place] [address] Creatinine (U) [Mass/Vol] 256 mg/dL Normal 20-320 [facility] [employer] Comment on above: Order Comment: [facility] Testing performed at: [employer], [employer] [facility], [address] [facility], [address] [place] [address], [phone], Sterile Process Tech: Toi Dey MD [facility] Collection Date/Time: [facility] Results Received Date/Time: [facility] Reported Date/Time: Performed By: #### 6 517X #### [facility] [address] [place] [address] MICROALBUMIN/CRE ATININE RATIO, RANDOM URINE 7 mcg/mg creat Normal <30 [facility] [employer] Comment on above: Order Comment: [facility] Testing performed at: [facility], [employer] [facility], [address] [facility], [address] [place] [address], [phone], Sterile Process Tech: Toi Dey MD [facility] Collection Date/Time: [facility] [...] 6 517X #### [facility] [address] [place] [address] BASIC METABOLIC PANELon 09-16 Calcium mass conc 9.0 mg/dL Normal 8.6-10.3 [facility] Comment on above: Order Comment: No: Do not add to previou s draw Performed By: #### 3 5200 ####[facility] [place] [address], [facility] Chloride molar conc 101 mmol/L Normal 98-107 [facility] Comment on above: Order Comment: No: Do not add to previou s draw Performed By: #### 3 5200 ####[facility] [place] [address], [facility] CO2 molar conc 26 mmol/L Normal 21-31 [facility] Comment on above: Order Comment: No: Do not add to previou s draw Performed By: #### 3 5200 ####[facility] [place] [address], [place] Creatinine mass conc 0.99 mg/dL Normal 0.70-1.30 [facility] Comment on above: Order Comment: No: Do not add to previou s draw Performed By: #### 3 5200 ####[facility] [place] [address], [place] GFR/1.73 sq M predicted among blacks MDRD vol rate/area (S/P/Bld) mL/min/{1.73_m2} Normal >60 [facility] Comment on above: Order Comment: No: Do not add to previou s draw Performed By: #### 3 5200 ####[facility] [place] [address], [facility] GFR/1.73 sq M predicted among non-blacks MDRD vol rate/area (S/P/Bld) mL/min/{1.73_m2} Normal >60 [facility] Comment on above: Order Comment: No: Do not add to previou s draw Performed By: #### 3 5200 ####[facility] [place] [address], [place] Glucose mass conc 209 mg/dL High 70-100 [facility] Comment on above: Order Comment: No: Do not add to previou s draw Performed By: #### 3 5200 ####[facility] [place] [address], [place] Potassium molar conc 3.5 mmol/L Normal 3.5-5.1 [facility] Comment on above: Order Comment: No: Do not add to previou s draw Performed By: #### 3 5200 ####[facility] Sodium molar conc 135 mmol/L Low 136-145 [facility] Comment on above: Order Comment: No: Do not add to previou s draw Performed By: #### 3 5200 ####[facility] Urea nitrogen mass conc 24 mg/dL Normal 7-25 [facility] Comment on above: Order Comment: No: Do not add to previou s draw Performed By: #### 3 5200 ####[facility] CBC COMPLETE BLOOD COUNTon 0 10-05-2017 Erythrocyte distribution width Auto Ratio (RBC) 12.6 % Normal 11.5-15.0 [facility] Comment on above: Order Comment: No: Do not add to previou s draw Performed By: #### 3 5200 ####[facility] Hematocrit Auto Volume Fraction (Bld) 45.3 % Normal 39.0-50.0 [facility] Comment on above: Order Comment: No: Do not add to previou s draw Performed By: #### 3 5200 ####[facility] Hemoglobin mass conc (Bld) 15.1 g/dL Normal 13.0-17.0 [facility] Comment on above: Order Comment: No: Do not add to previou s draw Performed By: #### 3 5200 ####[facility] MCH Auto Entitic mass (RBC) 28.1 pg Normal 27.0-33.0 [facility] Comment on above: Order Comment: No: Do not add to previou s draw Performed By: #### 3 5200 ####[facility] [facility].[address] MCHC Auto mass conc (RBC) 33.3 g/dL Normal 32.0-35.0 [facility] Comment on above: Order Comment: No: Do not add to previou s draw Performed By: #### 3 5200 ####[facility] MCV Auto Entitic volume (RBC) 84.4 fL Normal 82.0-98.0 [facility] Comment on above: Order Comment: No: Do not add to previou s draw Performed By: #### 3 5200 ####[facility] Nucleated RBC/100 WBC Ratio (Bld) 0 % Normal 0-0 [facility] Comment on above: Order Comment: No: Do not add to previou s draw Performed By: #### 3 5200 ####[facility] PLAT CNT 316 10*3/uL Normal 150-400 [facility] Comment on above: Order Comment: No: Do not add to previou s draw Performed By: #### 3 5200 ####[facility] [facility].[address] RBC Auto #/vol (Bld) 5.37 10*6/uL Normal 4.20-5.70 [facility] Comment on above: Order Comment: No: Do not add to previou s draw Performed By: #### 3 5200 ####[facility] WBC Auto #/vol (Bld) 13.77 10*3/uL High 4.00-10.60 [facility] Comment on above: Order Comment: No: Do not add to previou s draw Performed By: #### 3 5200 ####[facility] Cardiovascular Lab Reporton 10-05-2017 Cardiovascular Lab Report [facility]: [id number] Physician: Verna Tidwell M.D.Medicine Service Date: 10/04/2017Division of Birthdate: 1965Cardiology Room #: 3CD [id number] [facility] [place], [place] [address]Ootma Fax Cardiovascular Laboratory ReportINDICATION: Monica Squires is [...] signed informed consent. He was brought to microbiological laboratory technician in a fasting state.The right wrist area [...] Bilateral selective coronary angiography was thenperformed using 6-[place] JL3.5, and JR4 diagnostic catheters. Catheterswere removed.Heparin was administered intravenously and therapeutic ACT confirmed duringthe procedure. A 6-[place] XB 3.5 guiding catheter was advanced and used toengage left main coronary ostium. A Morley wire was advanced into thedistal LAD. Balloon angioplasty in the mid LAD was performed using Emerge3.0 x 15 mm balloon, inflated at 12 atmospheres. Angiography revealedsuboptimal results. This was treated using a Synergy 3.5 x 20 mmdrug-eluting stent deployed at 11 atmospheres, post dilated using NCQuantum Dubois 3.5 x 15 mm noncompliant balloon inflated at 16 atmospheresthroughout the length of the stent. Angiography after administration ofintracoronary nitroglycerin showed excellent result with no evidence ofdissection or perforation and TANNER-3 flow in the LAD and branches. Guidingcatheter was removed. Procedure was concluded. The right femoralarteriotomy was managed with a 6-[place] Perclose device with goodhemostasis. He was loaded [...] 10/04/2017/01:46 P/Verna Yañez M.D.Date Trans: 10/05/2017 05:11 A/Diana_[id number]: Dann Johnson M.D. [facility] [address] [facility] [address] Fred Mishra M.D. [address] [facility] Internal Medicine [facility] [address] [facility] Discharge Summaryon 10-06-19 Discharge Summary MR#: [id number] [facility] Admitted: 10/01/2017 Discharged: 10/05/2017 Date of : 1965 Physician: Yue Ibarra M.D. DISCHARGE SUMMARYDISCHARGING PHYSICIAN: Dr. Ibarra.PRIMARY CARE PHYSICIAN: Dr. Dann Johnson.PRIMARY DIAGNOSIS: Coronary artery disease status post stent placement.SECONDARY DIAGNOSES:1. Hypertension, controlled.2. Dyslipidemia.CONSULTS: Cardiology.PROCEDURES/IMAGING: EKG, stress test, and cardiac cath.HOSPITAL COURSE: This is a 52-year-old male, presented to [facility] for chestpain. EKG was done that was [...] Yañez on 10/25/2017 at 9:45 a.m. at [facility].MEDICATIONS: Continue aspirin, statin, and Plavix as prescribed.Time spent for the discharge summary and coordination of care is 37minutes.Electronically Signed by:Yue Ibarra M.D. 10/08/2017 04:16 P ____Yue Ibarra M.D. I personally saw this patient on the day of the encounter, performed thekey portion(s) of the service and participated in the management andconfirm the resident's documentation. Please note there may be anadditional personal documentation from me. Date Dict: 10/05/2017/05:25 P/Mahendra Dailey Trans: 10/05/2017 06:46 P/[id number]: Dann Johnson M.D. [facility] [address] [facility] [address] Fred Mishra M.D. [address] [facility] [address] Normal [facility] POC GLUCOSE LABon 10-05-2017 Glucose mass conc 134 mg/dL High 70-100 [facility] Comment on above: Performed By: #### 679[address] ####[facility] [place] [address], [facility] BASIC METABOLIC PANELon 09-16 Calcium mass conc 9.0 mg/dL Normal 8.6-10.3 [facility] Comment on above: Order Comment: No: Do not add to previou s draw Performed By: #### 5 6101, [address] ####[facility] [place] [address], [facility] Chloride molar conc 103 mmol/L Normal 98-107 [facility] Comment on above: Order Comment: No: Do not add to previou s draw Performed By: #### 5 6101, [address] ####[facility] [place] [address], [place] CO2 molar conc 25 mmol/L Normal 21-31 [facility] Comment on above: Order Comment: No: Do not add to previou s draw Performed By: #### 5 6101, [address] ####[facility] [place] [address], [place] Creatinine mass conc 1.05 mg/dL Normal 0.70-1.30 [facility] Comment on above: Order Comment: No: Do not add to previou s draw Performed By: #### 5 610, 25055 ####[facility] [place] [address], [place] GFR/1.73 sq M predicted among blacks MDRD vol rate/area (S/P/Bld) mL/min/{1.73_m2} Normal >60 [facility] Comment on above: Order Comment: No: Do not add to previou s draw Performed By: #### 5 610, 34872 ####[facility] [place] [address], [place] GFR/1.73 sq M predicted among non-blacks MDRD vol rate/area (S/P/Bld) mL/min/{1.73_m2} Normal >60 [facility] Comment on above: Order Comment: No: Do not add to previou s draw Performed By: #### 5 610, 33152 ####[facility] [place] [address], [place] Glucose mass conc 170 mg/dL High 70-100 [facility] Comment on above: Order Comment: No: Do not add to previou s draw Performed By: #### 5 610, 13727 ####[facility] [place] [address], [place] Potassium molar conc 3.1 mmol/L Low 3.5-5.1 [facility] Comment on above: Order Comment: No: Do not add to previou s draw Performed By: #### 5 610, 42189 ####[facility] [place] [address], [place] Sodium molar conc 137 mmol/L Normal 136-145 [facility] Comment on above: Order Comment: No: Do not add to previou s draw Performed By: #### 5 610, 58752 ####[facility] Urea nitrogen mass conc 32 mg/dL High 7-25 [facility] Comment on above: Order Comment: No: Do not add to previou s draw Performed By: #### 5 610, 45136 ####[facility]3000 [facility].[address] CBC W/DIFFon 10-04-2017 ABS BASOPHILS 0.1 10*3/uL Normal 0.0-0.2 [facility] Comment on above: Order Comment: No: Do not add to previou s draw Performed By: #### 5 610, 98887 ####[facility]3000 [facility].[address] ABS IMM GRANS 0.0 10*3/uL Normal 0.0-0.2 [facility] Comment on above: Order Comment: No: Do not add to previou s draw Performed By: #### 5 6100, 22294 ####[facility] ABS NEUTROPHILS 6.1 10*3/uL Normal 1.6-7.6 [facility] Comment on above: Order Comment: No: Do not add to previou s draw Performed By: #### 5 610, 37015 ####[facility] [facility].[address] Basophils Auto #/vol (Bld) 0.5 % Normal 0.0-1.0 [facility] Comment on above: Order Comment: No: Do not add to previou s draw Performed By: #### 5 610, 67442 ####[facility] Eosinophils Auto #/vol (Bld) 0.1 10*3/uL Normal 0.0-0.5 [facility] Comment on above: Order Comment: No: Do not add to previou s draw Performed By: #### 5 6100, 19705 ####[facility] Eosinophils/100 WBC Auto (Bld) 1.4 % Normal 0.0-6.0 [facility] Comment on above: Order Comment: No: Do not add to previou s draw Performed By: #### 5 6100, 60146 ####[facility] Erythrocyte distribution width Auto Ratio (RBC) 12.3 % Normal 11.5-15.0 [facility] Comment on above: Order Comment: No: Do not add to previou s draw Performed By: #### 5 6100, 49798 ####[facility] [facility] Hematocrit Auto Volume Fraction (Bld) 44.4 % Normal 39.0-50.0 [facility] Comment on above: Order Comment: No: Do not add to previou s draw Performed By: #### 5 6100, 28339 ####[facility] [facility] Hemoglobin mass conc (Bld) 14.9 g/dL Normal 13.0-17.0 [facility] Comment on above: Order Comment: No: Do not add to previou s draw Performed By: #### 5 6100, 76107 ####[facility] IMMATURE GRANS 0.3 % Normal 0.0-1.0 [facility] Comment on above: Order Comment: No: Do not add to previou s draw Performed By: #### 5 610, 13898 ####[facility] Lymphocytes Auto #/vol (Bld) 2.4 10*3/uL Normal 1.2-4.0 [facility] Comment on above: Order Comment: No: Do not add to previou s draw Performed By: #### 5 610, 14444 ####[facility] Lymphocytes/100 WBC Auto (Bld) 24.0 % Normal 20.0-45.0 [facility] Comment on above: Order Comment: No: Do not add to previou s draw Performed By: #### 5 6100, 69181 ####[facility] MCH Auto Entitic mass (RBC) 28.0 pg Normal 27.0-33.0 [facility] Comment on above: Order Comment: No: Do not add to previou s draw Performed By: #### 5 6100, 44606 ####[facility] [facility] MCHC Auto mass conc (RBC) 33.6 g/dL Normal 32.0-35.0 [facility] Comment on above: Order Comment: No: Do not add to previou s draw Performed By: #### 5 6100, 42880 ####[facility] MCV Auto Entitic volume (RBC) 83.5 fL Normal 82.0-98.0 [facility] Comment on above: Order Comment: No: Do not add to previou s draw Performed By: #### 5 610, 48177 ####[facility] Monocytes Auto #/vol (Bld) 1.3 10*3/uL High 0.1-1.0 [facility] Comment on above: Order Comment: No: Do not add to previou s draw Performed By: #### 5 610, 16642 ####[facility] MONOS 13.1 % High 5.0-12.0 [facility] Comment on above: Order Comment: No: Do not add to previou s draw Performed By: #### 5 610, 02795 ####[facility] [place] [address], [facility] Neutrophils/100 WBC Auto (Bld) 60.7 % Normal 40.0-72.0 [facility] Comment on above: Order Comment: No: Do not add to previou s draw Performed By: #### 5 6100, 93188 ####[facility] [place] [address], [facility] Nucleated RBC/100 WBC Ratio (Bld) 0 % Normal 0-0 [facility] Comment on above: Order Comment: No: Do not add to previou s draw Performed By: #### 5 6100, 21421 ####[facility] [place] [address], [facility] PLAT CNT 304 10*3/uL Normal 150-400 [facility] Comment on above: Order Comment: No: Do not add to previou s draw Performed By: #### 5 6100, 71581 ####[facility] [place] [address], [facility] RBC Auto #/vol (Bld) 5.32 10*6/uL Normal 4.20-5.70 [facility] Comment on above: Order Comment: No: Do not add to previou s draw Performed By: #### 5 6100, 38345 ####[facility] [place] [address], [facility] WBC Auto #/vol (Bld) 9.99 10*3/uL Normal 4.00-10.60 [facility] Comment on above: Order Comment: No: Do not add to previou s draw Performed By: #### 5 6100, 60429 ####[facility] [place] [address], [facility] MAGNESIUM BLOODon 10-04-2017 Magnesium mass conc 1.9 mg/dL Normal 1.9-2.7 [facility] Comment on above: Order Comment: No: Do not add to previou s draw Performed By: #### 3 5200 ####[facility] [place] [address], [place] PHOSPHORUS BLOODon 8 Phosphate mass conc 3.8 mg/dL Normal 2.5-5.0 [facility] Comment on above: Order Comment: No: Do not add to previou s draw Performed By: #### 5 6101, 57679 ####[facility] [place] [address], [place] POC GLUCOSE LABon 10-04-2017 Glucose mass conc 138 mg/dL High 70-100 [facility] Comment on above: Performed By: #### 35067 ####[facility] [place] [address], [place] Glucose mass conc 164 mg/dL High 70-100 [facility] Comment on above: Performed By: #### 27583 ####[facility] [place] [address], [place] Glucose mass conc 113 mg/dL High 70-100 [facility] Comment on above: Performed By: #### 12178 ####[facility] [place] [address], [place] Glucose mass conc 110 mg/dL High 70-100 [facility] Comment on above: Performed By: #### 14682 ####[facility] [place] [address], [place] POC GLUCOSE LABon 10-03-2017 Glucose mass conc 101 mg/dL High 70-100 [facility] Comment on above: Performed By: #### 21759, 98681 ####[facility] [place] [address], [place] Glucose mass conc 114 mg/dL High 70-100 [facility] Comment on above: Performed By: #### 25143, 44169 ####[facility] [place] [address], [place] Glucose mass conc 122 mg/dL High 70-100 [facility] Comment on above: Performed By: #### 97027, 67697 ####[facility] [place] [address], [place] BASIC METABOLIC PANELon 09-15 Calcium mass conc 9.2 mg/dL Normal 8.6-10.3 [facility] Comment on above: Order Comment: No: Do not add to previou s draw Performed By: #### 0 0071, 10584 ####[facility] [place] [address], [place] Chloride molar conc 99 mmol/L Normal 98-107 [facility] Comment on above: Order Comment: No: Do not add to previou s draw Performed By: #### 0 0071, 74932 ####[facility] [place] [address], [place] CO2 molar conc 26 mmol/L Normal 21-31 [facility] Comment on above: Order Comment: No: Do not add to previou s draw Performed By: #### 0 0071, 12524 ####[facility] [place] [address], [place] Creatinine mass conc 0.96 mg/dL Normal 0.70-1.30 [facility] Comment on above: Order Comment: No: Do not add to previou s draw Performed By: #### 0 0071, 55743 ####[facility] [place] [address], [place] GFR/1.73 sq M predicted among blacks MDRD vol rate/area (S/P/Bld) mL/min/{1.73_m2} Normal >60 [facility] Comment on above: Order Comment: No: Do not add to previou s draw Performed By: #### 0 0071, 21047 ####[facility] [place] [address], [facility] GFR/1.73 sq M predicted among non-blacks MDRD vol rate/area (S/P/Bld) mL/min/{1.73_m2} Normal >60 [facility] Comment on above: Order Comment: No: Do not add to previou s draw Performed By: #### 0 0071, 44069 ####[facility] [place] [address], [facility] Glucose mass conc 109 mg/dL High 70-100 [facility] Comment on above: Order Comment: No: Do not add to previou s draw Performed By: #### 0 0071, 07809 ####[facility] [place] [address], [facility] Potassium molar conc 3.5 mmol/L Normal 3.5-5.1 [facility] Comment on above: Order Comment: No: Do not add to previou s draw Performed By: #### 0 0071, 40409 ####[facility] [place] [address], [place] Sodium molar conc 135 mmol/L Low 136-145 [facility] Comment on above: Order Comment: No: Do not add to previou s draw Performed By: #### 0 0071, 07476 ####[facility] [place] [address], [facility] Urea nitrogen mass conc 16 mg/dL Normal 7-25 [facility] Comment on above: Order Comment: No: Do not add to previou s draw Performed By: #### 0 0071, 11965 ####[facility] CBC COMPLETE BLOOD COUNTon 10-02-2017 Erythrocyte distribution width Auto Ratio (RBC) 12.6 % Normal 11.5-15.0 [facility] Comment on above: Order Comment: No: Do not add to previou s draw Performed By: #### 5 0608 ####[facility]3000 [facility].[address] Hematocrit Auto Volume Fraction (Bld) 45.2 % Normal 39.0-50.0 [facility] Comment on above: Order Comment: No: Do not add to previou s draw Performed By: #### 5 0608 ####[place] [address] [address] Hemoglobin mass conc (Bld) 15.4 g/dL Normal 13.0-17.0 [facility] Comment on above: Order Comment: No: Do not add to previou s draw Performed By: #### 5 0608 ####[facility] MCH Auto Entitic mass (RBC) 28.4 pg Normal 27.0-33.0 [facility] Comment on above: Order Comment: No: Do not add to previou s draw Performed By: #### 5 0608 ####[facility] [facility].[address] MCHC Auto mass conc (RBC) 34.1 g/dL Normal 32.0-35.0 [facility] Comment on above: Order Comment: No: Do not add to previou s draw Performed By: #### 5 0608 ####[facility] MCV Auto Entitic volume (RBC) 83.4 fL Normal 82.0-98.0 [facility] Comment on above: Order Comment: No: Do not add to previou s draw Performed By: #### 5 0608 ####[facility] [facility].[address] Nucleated RBC/100 WBC Ratio (Bld) 0 % Normal 0-0 [facility] Comment on above: Order Comment: No: Do not add to previou s draw Performed By: #### 5 0608 ####[facility] [facility] [place] [address], [facility] PLAT CNT 311 10*3/uL Normal 150-400 [facility] Comment on above: Order Comment: No: Do not add to previou s draw Performed By: #### 5 0608 ####[address] RBC Auto #/vol (Bld) 5.42 10*6/uL Normal 4.20-5.70 [facility] Comment on above: Order Comment: No: Do not add to previou s draw Performed By: #### 5 0608 ####[facility] [place] [address].[address] WBC Auto #/vol (Bld) 11.01 10*3/uL High 4.00-10.60 [facility] Comment on above: Order Comment: No: Do not add to previou s draw Performed By: #### 5 0608 ####[address] CHEST AND LATERALon 10-03-19 [facility] AND LATERAL [facility] [place] [id number] ========Patient Name: MONICA SQUIRES : 1965Sex: MAge: Race: WhiteMRN: [id number]. Location: [id number] Status: OVisit #: [id number] Date: 10/02/2017 9:55:00 AMCompleted Date: 10/02/2017 10:51 AMRequesting Provider: SINGH SIMON Attending Provider: FRED MISHRA Report Copy To: Signs & Symptoms: Chest PainHistory: Patient history not availableComments: Other, ; Call/page results to 2501Exam: CHEST AND LATERALAccession #: [id number] CHEST AND LATERAL 10/02/2017 10:51 AM EDT SIGNS AND SYMPTOMS: Chest Pain TECHNOLOGIST COMMENTS: Patient states irregular EKG during stress test complaint of chest pain QUESTION FOR THE RADIOLOGIST: Other, ; Call/page results to 2501 PROTOCOL: AP(PA) and Lateral views were obtained. [...] findings. Electronically signed by:Andrei Lui. Transcribed by: [email or web address], User Resident: FREDERICK ROMANElectronically Signed by: ANDREI LUI @ 10/02/2017 04:40 PMI personally read this/these film(s) with this resident Normal [facility] Comment on above: Order Comment: No: Do not add to previou s draw MAGNESIUM BLOODon 10-02-2017 Magnesium mass conc 1.8 mg/dL Low 1.9-2.7 [facility] Comment on above: Order Comment: No: Do not add to previou s draw Performed By: #### 0 0071, 95143 ####[facility] [place] [address], [facility] POC GLUCOSE LABon 10-02-2017 Glucose mass conc 115 mg/dL High 70-100 [facility] Comment on above: Performed By: #### 63302, 11042 ####[facility] [facility] [place] [address], [facility] Glucose mass conc 149 mg/dL High 70-100 [facility] Comment on above: Performed By: #### 27471, 25226 ####[facility] [place] [address] [facility] [place] [address], [facility] Glucose mass conc 102 mg/dL High 70-100 [facility] Comment on above: Performed By: #### 02393 ####[address] [place] [address], [facility] Glucose mass conc 97 mg/dL Normal 70-100 [facility] Comment on above: Performed By: #### 43977 ####[place] [address] [facility] [place] [address], [facility] TROPONIN-Ion 10-02-2017 Troponin I.cardiac mass conc 0.00 ng/mL Normal 0.00-0.04 [facility] Comment on above: Order Comment: No: Do not add to previou s draw Result Comment: REFE RENCE RANGES: 0.00 - 0.14 ng/ml NEGATIVE 0.15 - 0.25 ng/ml INDETERMINATE > 0.25 ng/ml INDICATIVE OF AN M.I. Performed By: #### 5 6101, [address] ####[place] [address], [facility] Troponin I.cardiac mass conc 0.00 ng/mL Normal 0.00-0.04 [facility] Comment on above: Order Comment: No: Do not add to previou s drawQ6 HRS, PER MAAME BLANTON Result Comment: REFE RENCE RANGES: 0.00 - 0.14 ng/ml NEGATIVE 0.15 - 0.25 ng/ml INDETERMINATE > 0.25 ng/ml INDICATIVE OF AN M.I. Performed By: #### 3 5200 ####[facility] Troponin I.cardiac mass conc 0.01 ng/mL Normal 0.00-0.04 [facility] Comment on above: Order Comment: No: Do not add to previou s drawQ6 HRS, PER RN HARVINDER Result Comment: REFE RENCE RANGES: 0.00 - 0.04 ng/ml NORMAL 0.05 - 0.50 ng/ml INDETERMINATE > 0.50 ng/ml CONSISTENT WITH AN M.I. Performed By: #### 3 5200 ####[facility] APTTon 10-01-2017 aPTT Coag time (Bld) 32.1 s Normal 25.0-35.0 [facility] Comment on above: Order Comment: No: [...] THIS PURPOSE. Performed By: #### 5 6101, 48243 ####[facility] PROTHROMBIN TIMEon 8 INR Coag RelTime (PPP) 1.02 {INR} Normal 0.91-1.16 [facility] Comment on above: Order Comment: No: Do not add to previou s [id number]- PATIENT DOES NOT HAVE I.D. BAND YET [...] OF ACTION, CLINICALEFFECTIVENESS, AND OPTIMAL THERAPEUTIC RANGE. [id number]. Performed By: #### 5 6101, 65456 ####[facility] Prothrombin time (PT) Coag time (PPP) 13.4 s Normal 12.3-14.8 [facility] Comment on above: Order Comment: No: Do not add to previou s [id number]- PATIENT DOES NOT HAVE I.D. BAND YET -TECH AB Result Comment: ALL RESULTS MUST BE INTERPRETED WITH RESPECT TO BLOOD DRAWING ARTIFACTOR DILUTION ERROR OF ANTICOAGULANT AT THE TIME OF SAMPLING. Performed By: #### 5 6101, 17772 ####[facility] TROPONIN-Ion 10-01-2017 Troponin I.cardiac mass conc 0.00 ng/mL Normal 0.00-0.04 [facility] Comment on above: Order Comment: No: Do not add to previou s draw Result Comment: REFE RENCE RANGES: 0.00 - 0.14 ng/ml NEGATIVE 0.15 - 0.25 ng/ml INDETERMINATE > 0.25 ng/ml INDICATIVE OF AN M.I. Performed By: #### 3 5200 ####[facility] Vital Signs Date Time Vital Sign Value Performing Clinician Rosamaria viveros 03-25-2023 14:13-0500 Body mass index (BMI) [Ratio] 34.12 kg/m2 Dann Johnson MD Work Phone: [facility] 03-25-2023 14:13-0500 Body weight 123.83 kg Dann Johnson MD Work Phone: [facility] 03-25-2023 14:13-0500 Diastolic blood pressure 82 mm[Hg] Dann Johnson MD Work Phone: [facility] 03-25-2023 14:13-0500 Heart rate 67 /min Dann Johnson MD Work Phone: [facility] 03-25-2023 14:13-0500 SaO2% (BldA) [Mass fraction] 95 % Dann Johnson MD Work Phone: [facility] 03-25-2023 14:13-0500 Systolic blood pressure 136 mm[Hg] Dann Johnson MD Work Phone: [facility] Encounters Encounter Date Encounter Type Care Provider Facility Start: 09-07-2023 End: 09-07-[address] [facility] Start: 03-25-2023 End: 03-25-2023 ambulatory DANN JOHNSON Not Available Start: 03-25-2023 End: 03-25-2023 Office outpatient visit 25 minutes Dann Johnson MD Work Phone: [facility] Comment on above: Type 2 diabetes rickey itus with other specified complication, with long-term current use of insulin ([facility]); custodial (current) use of insulin (Z79.4); Atherosclerotic heart disease of [place] coronary artery with other forms of angina pectoris (I25.118); Type 2 diabetes mellitus with hyperglycemia, with long-term current use of insulin ([facility]) Start: 03-24-2023 Chart abstracting Dann Johnson MD Work Phone: [facility] Start: 03-10-2023 End: 01-24-2024 ambulatory VERNA MOUKARBEL [facility] Start: 02-10-2023 End: 02-10-2023 ambulatory DANN JOHNSON Not Available Start: 01-27-2023 End: 01-27-2023 ambulatory KANWAL RODRIGUEZ Not Available Start: 05-12-2021 End: 05-13-2021 ambulatory MYRNA MURILLOCKER Facility: Start: 11-29-2020 ambulatory [facility] Facility : Start: 11-01-2017 End: 11-02-2017 Patient encounter DEFAULT PHYSICIAN Facility:[facility] Start: 10-01-2017 End: 10-05-2017 Evaluation and management of inpatient FRED MISHRA Facility:[facility] Procedures Date Procedure Procedure Detail Performing Clinician Start: 03-25-2023 Hemoglobin glycosyla jessica a1c Dann Johnson MD Work Phone: Start: 10-04-2017 DILATION OF 1 COR AR T WITH DRUG-ELUT INTRA, PERC APPROACH VERNA YAÑEZ Start: 11-09-2016 Colonoscopy Dann Johnson MD Work Phone: Plan of Treatment Date Care Activity Detail Author Start: 11-09-2026 Screening for malign ant neoplasm of colon [facility] Start: 08-15-2023 Influenza vaccination Influenza Vacc ine (#1) [facility] Comment on above: Postponed from 10/16 (Other Patient Reasons) Start: 06-23-2023 Hemoglobin A1c measurement Diabetes: Hemoglobin A1C [facility] Start: 05-13-2023 End: 05-13-2023 Patient encounter procedure 05/13/2023 2:05 PM EDT Office Visit [facility] [address] [place] [address] Kanwal Rodriguez MD [address] [place] [address] [facility] Start: 03-25-2023 End: 03-25-2024 Microalbumin/Creatinine panel in random Urine Microalbumin / creatinine urine ratio Lab Routine Type 2 diabetes mellitus with other specified complication, with long-term current use of insulin ([facility]) Expected: 03/25/2023 (Approximate), Expires: 03/25/2024 [facility] Work Phone: Comment on above: Expected: 03/25/2023 (Approximate), Expires: 03/25/2024 Start: 03-25-2023 End: 03-25-2023 Patient encounter procedure 03/25/2023 2:00 PM EST Office Visit [facility] [address] [facility] [address] [place] [id number] Dann Johnson MD [address] [facility] [address] [place] [address] [facility] Start: 12-22-2022 Hemoglobin A1c measurement Diabetes: Hemoglobin A1C [facility] Start: 09-26-2022 Glaucoma screening Diabetes: R etinopathy Screening [facility] Start: 03-24-2022 Urine screening for protein Diabetes: Urine Protein Screening [facility] Start: 1965 Screening for malign ant neoplasm of colon [facility] Payers Date Payer Category Payer Medicaid [place] [id number] 2022-Present [address] [place] [address] [id number] 2022 Medicaid [id number] 1965 Unknown [id number] 1964 Unknown [id number] 1964 Unknown [id number] 1964 Unknown [id number] 1964 Unknown [id number] 1959 Self-pay 1960 Unknown [id number] Unknown Unknown [id number] Social History Date Type Detail Facility Start: 10-01-2022 Tobacco smoking stat NHIS Ex-smoker [facility] History of tobacco use [...] Tobacco Comment Quit tobacco 7 years ago [facility] Start: 1965 Sex Assigned At Not on file N [facility] Start: 08-26-2022 Gender identity Identifies as male gender (finding) [facility] Procedure Code Equipment Code Equipment Origin al Text Equipment Identifier Dates USE DIRECTED TWICE A DAY [id number] Start: 06-15-2022 Progress note 09-07-2023 Note Date & Type Note Facility 09-07-2023 Note Patient here for [facility] yesterday for chest pain. He says it feels like a pulled muscle. It occurs intermittently, but only with rest - never exertion. Hasn't taken any nitroglycerin for the pain. Denies SOB, palpitations, and lightheadedness/syncope. Review of Systems Cardiovascular: Positive for chest pain (intermittent, at rest) and leg swelling. All other systems reviewed and are negative. [facility] Progress note 09-07-2023 Note Date & Type Note Facility 09-07-2023 Note Cardiovascular Medic [facility] SUBJECTIVE Chief Complaint Patient presents with Coronary Artery Disease Monica Squires is a 58 y.o. male here for follow-up after his recent ER visit. HPI PMHx: CAD s/p PCI 2017, HTN, HLD, DM type II 09/07/2023 He has been experiencing intermittent chest pains. Left sided, occurs at rest. Feels like a pulling sensation or a sharp pain, pain 1-2/10, lasts 1-3 seconds then resolves. Can happen multiple times a day. He reports having some abnormal chest discomfort sx's prior to his PCI in 2018. His edema is controlled. He hasn't cycled for about a month or so. Longest he's gone is 20 miles but hasn't done that for a little while. Denies dyspnea, orthopnea, PND, dizziness/LH, palpitations. States he is doing well from a cardiac standpoint. He cycles and stays active. Tries to eat heart healthy diet. Last April they found he had type II melanoma and removed it, he follow routinely with dermatology. He has infrequent episodes of left sided chest pain, occurs maybe every 3 months, occurs at rest, lasts seconds and resolves on its own. He has not needed to take any nitroglycerin. He is able to exercise/bike or exert himself without any episodes of chest pain or dyspnea. He has intermittent fatigue but it is better than what it was before. He has intermittent leg swelling, lasix helps. He denies dyspnea, SHAIKH, orthopnea, PND, dizziness/LH, palpitations, bleeding issues. -------- Prior HPI: He has a hx of being admitted with unstable angina in 09/2017. A stress test showed lateral ischemia, EF was 63% by stress test on 10/02/2017. He was referred for cardiac catheterization on 10/04/2017: 1. Coronary artery disease with moderate to severe 2-vessel disease. 2. An 85% mid LAD, irregular stenosis, reduced to 0% by Synergy drug-eluting stent. 3. An 80% stenosis in the very apical LAD. 4. A 50% stenosis in the ostium of a moderate size 2nd diagonal branch. 5. A 60% stenosis in the mid right coronary artery. He has prior history of hypertension and diabetes. Post PCI Stress test 11/01/2017: normal, EF 74%. He finished cardiac rehab after the stenting procedure. His stress test in October 2018 did not show ischemia. Patient Active Problem List Diagnosis Coronary arteriosclerosis Edema of lower extremity Essential (primary) hypertension Hyperglycemia Hyperglycemia due to type 2 diabetes mellitus (CMS/HCC) Hypertriglyceridemia Insomnia Lipoprotein deficiency disorder Liver anomaly, congenital Nephrolithiasis Tension headache Esophageal reflux Finding of above normal blood pressure Impotence of organic origin Localized, primary osteoarthritis of hand custodial (current) use of insulin (CMS/HCC) Low HDL (under 40) Melanoma in situ of left upper arm (CMS/HCC) Memory loss Type 2 diabetes mellitus (CMS/HCC) Uncontrolled type 2 diabetes mellitus with hyperglycemia (CMS/HCC) Past Medical History: Diagnosis Date Cancer (CMS/HCC) Coronary artery disease Diabetes mellitus (CMS/HCC) Hyperlipidemia Hypertension Family History Problem Relation Name Age of Onset Other (parkinson's) Mother Hypertension Father Coronary artery disease Father Social History Tobacco Use Smoking status: Former Types: Cigarettes Smokeless tobacco: Never Substance Use Topics Alcohol use: Yes Comment: occasional No Known Allergies ROS Cardiovascular: Positive for chest pain (intermittent, at rest) and leg swelling. All other systems reviewed and are negative. OBJECTIVE Visit Vitals BP 118/80 (BP Location: Left arm, Patient Position: Sitting) Pulse 82 Ht 1.93 m (6' 4 ) Wt 123 kg (272 lb) SpO2 96% BMI 33.11 kg/m??? Smoking Status Former BSA 2.57 m??? Medications: Current Outpatient Medications: amLODIPine (Norvasc) 10 mg [...] ONCE DAILY, Disp: 90 tablet, Rfl: 3 furosemide (Lasix) 20 mg tablet, furosemide 20 [...] DAY WITH FOOD, Disp: , Rfl: nitroglycerin (Nitrostat) 0.4 mg SL tablet, nitrogl (more content not included)... [facility] History of Present illness Narrative 03-25-2023 Dann Johnson MD - 03/25/2023 2:29 PM Uma Johnson MD - 03/25/2023 2:29 PM Uma Johnson MD - 03/25/2023 2:28 PM Uma Johnson MD - 03/25/2023 2:00 PM EST Note Date & Type Note Facility 03-25-2023 History of Presen t illness Narrative Associated Problem(s): Atherosclerotic heart disease of [place] coronary artery with other forms of angina pectoris (CMS/HCC) Reviewed Labs and has seen Kindergarten Teacher Assistant In February Associated Problem(s): Type 2 diabetes [...] of healthy diet and exercise. 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 He does not see a civil cadd technician.Eye exam is current. Current Outpatient Medications on [...] mouth in the morning. Easy Comfort Pen [place] 31G X 5 MM misc USE DIRECTED TWICE A DAY furosemide (Lasix) [...] DOSES ONLY. IF NO RELIEF, CALL 911 Trulicity 1.5 MG/0.5ML solution pen-injector INJECT ONE INJECTION [...] was 60% History of being hospitalized 09/2017 [facility]: CAD, stent placement History of stress test [...] Procedure Laterality Date CARDIAC SURGERY COLONOSCOPY [address] [facility] [address] dinh diverticulosis coli internal hemorrhoids CORONARY STENT PLACEMENT 10/05/2019 OTHER SURGICAL HISTORY 10/04/2017 Stent Mid Left Artial Disease with 85% Blockage Balloon Angioplasty and Drug Eluting Stent mid LAD SKIN CANCER EXCISION 04/15/2021 [facility] Visit Vitals BP 136/82 Pulse 67 Wt [...] This Visit Circulatory Atherosclerotic heart disease of [place] coronary artery with other forms of angina pectoris (CMS/HCC) Reviewed Labs and has seen Kindergarten Teacher Assistant In February Endocrine/Metabolic Type 2 diabetes mellitus [...] ratio POCT Glycated hemoglobin, total (Completed) Other custodial (current) use of insulin (Z79.4) Adjust as needed to keep fasting less 120 Follow up in about 6 months (around 09/23/2023) for Diabetes. documented in this encounter [facility] Progress note 03-10-2023 Note Date & Type Note Facility 03-10-2023 Note [place] [facility] Subjective Monica Squires is a [...] Rfl: nitroglycerin (Nitrostat (more content not included)... [facility] Evaluation note Note Date & Type Note Facility Evaluation note Diagnosis Type 2 diabetes mellitus with other specified complication, with long-term current use of insulin ([facility]) custodial (current) use of insulin (Z79.4) Atherosclerotic heart disease of [place] coronary artery with other forms of angina [...] and content) DATE CREATED AUTHOR 11/28/2017 [facility] DATE CREATED AUTHOR AUTHOR'S ORGANIZ ATION 03/25/2021 [facility] dical Specialist DATE CREATED AUTHOR AUTHOR'S ORGANIZ ATION 05/17/2021 [facility] pital DATE CREATED AUTHOR AUTHOR'S ORGANIZ ATION 03/26/2023 [facility] Specialists EPIC DATE CREATED AUTHOR AUTHOR'S ORGANIZ ATION 09/10/2023 [facility] Care Teams (unrecognized sec tion and content) Fertilizer Supervisor Relationship Specialty Start Date End Date Dann Johnson MD [address] [facility] [address] [place] [address] PCP - General Family Medicine 06/23/22 Fertilizer Supervisor Relationship Specialty Start Date End Date Dann Johnson MD [address] [facility] [address] [place] [address] PCP - General Family Medicine 06/23/22 Reason [...] BE BASED ON THE PRIMARY CLINICAL RECORDS. [facility] [address] [facility]. provides no warranty or guarantee of the accuracy or completeness of information in this document.
--- NOTE | 2023-09-29 08:00 | CA_ITS ---
Patient Name: MONICA MONTANO MR#: [id number] : 1965 Exam Date: 09/29/2023 Ordering Doctor: MYRNA FERNANDEZ CNP ECHOCARDIOGRAM REPORT PROCEDURE: CA ECHO DOPPLER COMPLETE INDICATIONS: Chest pain COMPARISON: None. DESCRIPTION: COMPLETE ECHOCARDIOGRAM Real-time transthoracic echocardiography with 2D, M-mode, spectral and color flow Doppler performed. QUALITY: Technical quality was good. LEFT VENTRICLE: Normal chamber size. Mild left ventricular hypertrophy. LV EF: Global left ventricular systolic function is normal. Calculated left ventricular ejection fraction is 61%. No significant wall motion abnormalities. DIASTOLIC: Normal diastolic function. ATRIAL SEPTUM: Inadequately seen. LEFT ATRIUM: Mild dilatation. RIGHT ATRIUM: Mild dilatation. RIGHT VENTRICLE: Normal chamber size. Normal right ventricular systolic function. TRICUSPID VALVE: Normal mobility and thickness. No stenosis with trivial regurgitation. No evidence of pulmonary hypertension. RVSP 22mmHg MITRAL VALVE: Normal mobility and thickness. No evidence of mitral valve stenosis. There is no mitral annular calcification. Trivial mitral regurgitation. AORTIC VALVE: Normal trileaflet appearance. Thickened aortic valve. Normal leaflet mobility. No evidence of aortic valve stenosis. Trivial aortic regurgitation. AORTIC ROOT: Normal diameter and appearance. PULMONIC VALVE: Normal thickness and mobility. No stenosis. Trivial regurgitation. PERICARDIUM: No evidence of pericardial effusion. IVC: Collapses with inspirations. Normal size. CONCLUSION: 1. Global left ventricular systolic function is normal; visually estimated ejection fraction is 60 to 65% 2. Normal right ventricular size and systolic function 3. Mild left ventricular hypertrophy 4. Normal diastolic function 5. Biatrial enlargement 6. No significant valvular abnormalities Adult Echocardiography Procedure Report Left Ventricle LVEDD (3.7 - 5.6 cm): 4.11 cm LVESD (2.2 - 4.0 cm): 2.86 cm LVIVS thickness (0.6 - 1.2 cm): 1.29 cm LVPW thickness (0.5 - 1.0 cm): 1.00 cm e': 0.12 m/s E - e': 5.56 LVOT Max Gradient: 3.33 mm[Hg] LVOT Area (cm2): 0.91 m/s Peak Velocity (LVOT): 0.91 m/s Mean Velocity (LVOT): 0.66 m/s LVOT Diameter 1.96 cm Left Ventricular Ejection Fraction: 61.26 % Left Atrium LA Volume Index (2D A2C): 38.74 ml/m2 Left Atrium Systolic Dimension: 4.05 cm Mitral Valve MV E to A Ratio: 1.16 Mitral Valve A-Wave Peak Velocity: 0.57 m/s Mitral Valve E-Wave Peak Velocity: 0.66 m/s Right Ventricle RV Internal Diastolic Dimension: 3.43 cm Aorta AO Root Diam: 3.29 cm Ascending Ao Diam: 3.11 cm Aortic Valve AoV Area (Peak Jordy): 2.27 cm2, 2.27 cm2 AoV Area (VTI): 2.16 cm2, 2.16 cm2 Peak Velocity(Antegrade Flow): 1.21 m/s Peak Gradient(Antegrade Flow): 5.83 mm[Hg] Mean Velocity(Antegrade Flow): 0.85 m/s Mean Gradient(Antegrade Flow): 3.28 mm[Hg] Velocity Time Integral: 31.09 cm Tricuspid Valve Peak Velocity (Regurgitant Flow): 1.82 m/s, 2.17 m/s Pulmonic Valve Mean Gradient: 2.86 mm[Hg], 3.00 mm[Hg] Mean Velocity: 0.80 m/s, 0.81 m/s Peak Velocity: 1.12 m/s Peak Gradient: 4.75 mm[Hg], 5.33 mm[Hg] Right Atrium Right Atrium Systolic Pressure: 39.00 ml, 39.00 ml Dictated by: Pro Greer M.D. on 09/29/2023 at 17:56 Approved by: Pro Greer M.D. on 09/29/2023 at 17:58
== END 2023-09-29 07:43 | disposition home or self-care (01) ==
LOC: CARD 07:43
PROVIDERS: PCP Family Medicine; Visit Provider Nurse Practitioner Family
DX: R07.89 Other chest pain (principal); I25.118 Atherosclerotic heart disease of native coronary artery with other forms of angina pectoris
CPT/HCPCS: 93306

== ENCOUNTER 2023-09-30 13:28 | Outpatient (OUT) | payer MEDICAID, SELFPAY | END 2023-09-30 13:29 | disposition home or self-care (01) | LOC: NM 13:30 | PROVIDERS: PCP Family Medicine; Visit Provider Nurse Practitioner Family | DX: R07.89 Other chest pain (principal); I25.118 Atherosclerotic heart disease of native coronary artery with other forms of angina pectoris | CPT/HCPCS: 78452; A9500 ==

== ENCOUNTER 2023-10-08 07:41 | Outpatient (OUT) | payer MEDICAID, SELFPAY ==
--- NOTE | 2023-10-08 | PCN_ITS ---
CARDIAC STRESS TEST Requesting Physician: Procedure Date: 10/08/2023 This was a treadmill exercise stress test with myocardial perfusion imaging, performed at the [facility] on 10/08/2023. Informed consent was obtained. An intravenous line was secured. Baseline vital signs were obtained. The patient was attached to electrocardiographic monitoring and baseline ECG was obtained. The patient exercised on a treadmill according to the Vinod protocol for 6 minutes and reached stage 2 of the Vinod protocol, achieving 7 METS. Resting heart rate was 75 BPM and maximum heart rate was 162 BPM, representing 100% of maximum predicted heart rate. Resting blood pressure was 122/78 and maximum blood pressure was 150/86. Resting ECG showed sinus rhythm with no ischemic changes. ECG during peak exercise showed sinus tachycardia with no ischemic ST changes and no arrhythmias. ECG during the recovery period was similar to baseline. SUMMARY OF THE FINDINGS: 1. No evidence of ischemic ECG changes seen during treadmill exercise stress test. 2. Shafer treadmill score of +6 is associated with low risk for detention cardiac events. 3. Myocardial perfusion images will be reported separately. LIDYA
--- OUTSIDE RECORDS SUMMARY | 2023-10-08 07:44 | XMS_ITS | CCD ---
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 Name Role Phone FRED MISHRA Unavailable Unavailable DANN JOHNSON Unavailable Unavailable RENNO, ANAS Unavailable Unavailable RENNO, ANAS Unavailable Unavailable NE Unavailable Unavailable UNKNOWN, PROVIDER Unavailable Unavailable PHYSICIAN, [...] Unavailable Dann Johnson MD Primary Care Provider MYRNA FERNANDEZ Attending Unavailable VERNA YAÑEZ Attending [...] complication, with long-term current use of insulin ([facility]) INJECT ONE INJECTION VIA SUBCUTANEOUS [...] mellitus with other specified complication, unspecified whether long-term insulin use ([facility]) INJECT 25 UNITS SUB-Q DAILY [...] 2 diabetes mellitus with hyperglycemia, 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 ([facility]) TAKE ONE TABLET BY MOUTH [...] disease (20 sources) Atherosclerotic heart disease of [place] coronary artery without angina pectoris; Translations: [Atherosclerotic heart disease of [place] coronary artery with unstable angina pectoris] Onset: [...] sources) Long-term current use of insulin; Translations: [assisted (current) use of insulin] Onset: 03-25-2023 03-25-2023 [...] Range Facility Office Visiton 09-07-2023 Follow-up visit [id number] Dasha qSuires 1965 M Date Provider Department Center 09/07/2023 MYRNA HOFFMAN [facility] Family History Problem Relation Age of Onset Other Mother Hypertension Father Coronary artery disease Father Family Status - Relation Status Age at Mother Father Level of Service:43743 NE OFFICE/OUTPATIENT ESTABLISHED MOD MDM 30 MIN Reason for Visit and Comments: Coronary Artery Disease [187] Normal [facility] Laboratory - Hematology and Cell countson 03-25-2023 HbA1c (Bld) [Mass fraction] 6.5 % [facility] No Panel Informationon 03-25 Interpretation and review of laboratory results Normal [facility] Office Visiton 03-10-2023 Follow-up visit [id number] Dasha Squires 1965 M Date Provider Department Center 03/10/2023 VERNA LUA [facility] Family History Problem Relation Age of Onset Other Mother Hypertension Father Coronary artery disease Father Family Status - Relation Status Age at Mother Father Level of Service:66507 NE OFFICE/OUTPATIENT ESTABLISHED LOW MDM 20 MIN Normal [facility] 36on 03-03-2023 36 Approving, but needs appt for additional refills. Normal [facility] LIPID PROFILEon 05-12-2021 CHOL-HDL RATIO NORM SEE BELOW Normal [facility] Comment on above: Result Comment: 3.3 - 4.4 LOW RISK 4.4 - 7.1 AVERAGE RISK 7.1 - 11.0 MODERATE RISK >11.0 HIGH RISK Performed By: #### L IPID, CMP #### [facility] [address] [address] [address] Suman Montes Cholesterol [Mass/Vol] 100 mg/dL Normal <=200 [facility] Comment on above: Performed By: #### LIPID, CMP #### [facility] [address] [address] [address] Suman Montes Cholesterol in HDL [Mass/Vol] 39 mg/dL Critically low 40-60 [facility] Comment on above: Performed By: #### LIPID, CMP #### [facility] [address] [place] [address] Dr. Suman Montes Cholesterol in LDL [Mass/Vol] 43.8 mg/dL Normal [facility] Comment on above: Performed By: #### LIPID, CMP #### [facility] [address] [address] [address] Suman Montes Cholesterol.tota l/Cholesterol in HDL [Mass ratio] 2.6 {ratio} Normal [facility] Comment on above: Performed By: #### LIPID, CMP #### [facility] [address] [place] [address] Dr. Suman Montes HDL NORMAL > or = 60 mg/dl - LO W CARDIOVASCULAR RISK <40 mg/dl - HIGH CARDIOVASCULAR RISK Normal [facility] Comment on above: Performed By: #### LIPID, CMP #### [facility] [address] [address] [address] Suman Montes LDL CALC NORMAL SEE BELOW Normal [facility] Comment on above: Result Comment: <100 mg/dl OPTIMAL 100 - 129 mg/dl NEAR OR ABOVE OPTIMAL 130 - 159 mg/dl BORDERLINE HIGH 160 - 189 mg/dl HIGH >190 mg/dl VERY HIGH Performed By: #### L IPID, CMP #### [facility] [address] [place] [address] Dr. Suman Montes Triglyceride [Mass/Vol] 86 mg/dL Normal <=150 [facility] Comment on above: Performed By: #### LIPID, CMP #### [facility] [address] [address] [address] Suman Montes VLDL CALC 17.2 mg/dL Normal [facility] Comment on above: Performed By: #### LIPID, CMP #### [facility] [address] [address] [address] Suman Montes PROF 14(COMP METB)on 022 Albumin [Mass/Vol] 3.9 g/dL Normal 3.4-5.0 [facility] Comment on above: Performed By: #### LIPID, CMP #### [facility] [address] [place] [address] Dr. Suman Montes Albumin/Globulin [Mass ratio] 0.9 {ratio} Normal [facility] Comment on above: Performed By: #### LIPID, CMP #### [facility] [address] [place] [address] Dr. Suman Montes ALP [Catalytic activity/Vol] 136 U/L Critically high 46-116 [facility] Comment on above: Performed By: #### LIPID, CMP #### [facility] [address] [place] [address] Dr. Suman Montes ALT [Catalytic activity/Vol] 23 U/L Normal 16-63 [facility] Comment on above: Performed By: #### LIPID, CMP #### [facility] [address] [place] [address] Dr. Suman Montes Anion gap [Moles/Vol] 11.9 mmol/L Normal [facility] Comment on above: Performed By: #### LIPID, CMP #### [facility] [address] [place] [address] Dr. Suman Montes AST [Catalytic activity/Vol] 13 U/L Critically low 15-37 [facility] Comment on above: Performed By: #### LIPID, CMP #### [facility] [address] [place] [address] Dr. Suman Montes Bilirubin [Mass/Vol] 0.5 mg/dL Normal 0.2-1.3 [facility] Comment on above: Performed By: #### LIPID, CMP #### [facility] [address] [address] [address] Suman Montes Calcium [Mass/Vol] 8.7 mg/dL Normal 8.5-10.1 [facility] Comment on above: Performed By: #### LIPID, CMP #### [facility] [address] [address] [address] Suman Montes Chloride [Moles/Vol] 103 mmol/L Normal 98-107 [facility] Comment on above: Performed By: #### LIPID, CMP #### [facility] [address] [place] [address] Dr. Suman Montes CO2 [Moles/Vol] 28.8 mmol/L Normal 22.0-30.0 [facility] Comment on above: Performed By: #### LIPID, CMP #### [facility] [address] [place] [address] Dr. Suman Montes Creatinine [Mass/Vol] 0.97 mg/dL Normal 0.66-1.25 [facility] Comment on above: Performed By: #### LIPID, CMP #### [facility] [address] [place] [address] Dr. Suman Montes EGFR-AF FAROESE >60 Normal >=60 [facility] Comment on above: Performed By: #### LIPID, CMP #### [facility] [address] [place] [address] Dr. Suman Montes EGFR-NON AF FAROESE >60 Normal >=60 [facility] Comment on above: Performed By: #### LIPID, CMP #### [facility] [address] [place] [address] Dr. Suman Montes Globulin (S) [Mass/Vol] 4.2 g/dL Normal [facility] Comment on above: Performed By: #### LIPID, CMP #### [facility] [address] [place] [address] Dr. Suman Montes Glucose [Mass/Vol] 87 mg/dL Normal 74-106 [facility] Comment on above: Performed By: #### LIPID, CMP #### [facility] [address] [place] [address] Dr. Suman Montes Potassium [Moles/Vol] 3.7 mmol/L Normal 3.4-5.0 [facility] Comment on above: Performed By: #### LIPID, CMP #### [facility] [address] [address] [address] Suman Montes Protein [Mass/Vol] 8.1 g/dL Normal 6.1-8.2 [facility] Comment on above: Performed By: #### LIPID, CMP #### [facility] [address] [address] [address] Suman Montes Sodium [Moles/Vol] 140 mmol/L Normal 137-145 [facility] Comment on above: Performed By: #### LIPID, CMP #### [facility] [address] [address] [address] Suman Montes Urea nitrogen [Mass/Vol] 14.0 mg/dL Normal 7.0-18.0 [facility] Comment on above: Performed By: #### LIPID, CMP #### [facility] [address] [address] [address] Suman Montes Urea nitrogen/Creatin ine [Mass ratio] 14.4 mg/mg Normal [facility] Comment on above: Performed By: #### LIPID, CMP #### [facility] [address] [address] [address] Suman Montes Q - MICROALBUMIN,RANDOM URIN E (W/CREAT)on 03-24-2021 Albumin DL <= 20 mg/L (U) [Mass/Vol] 1.8 mg/dL Normal See Note: [facility] [employer] Comment on above: Order Comment: [facility]S Testing performed at: [employer], [email or web address], [address] [facility], [address] [place] [address], [place], [address], Printer Floor Covering Assistant: Toi Dey MD [facility] Collection Date/Time: [id number] [facility] Results Received Date/Time: [facility] Reported Date/Time: Result Comment: Refe rence Range: Reference Range Not established Performed By: #### 6 517X #### [facility] Default [address] [place] [address] Creatinine (U) [Mass/Vol] 256 mg/dL Normal 20-320 [facility] [employer] Comment on above: Order Comment: [facility]S Testing performed at: [employer], [employer], [address] [facility], [address] [place] [address], [phone], Printer Floor Covering Assistant: Toi Dey MD [facility] Collection Date/Time: [facility] Results Received Date/Time: [facility] Reported Date/Time: Performed By: #### 6 517X #### [facility] [address] [place] [address] MICROALBUMIN/CRE ATININE RATIO, RANDOM URINE 7 mcg/mg creat Normal <30 [facility] [employer] Comment on above: Order Comment: [facility]S Testing performed at: [facility], [employer] [facility], [address] [facility], [address] [place] [address], [phone], Printer Floor Covering Assistant: Toi Dey MD [facility] Collection Date/Time: [facility] [...] 6 517X #### [facility] [address] [place] [address] BASIC METABOLIC PANELon 09-16 Calcium mass conc 9.0 mg/dL Normal 8.6-10.3 [facility] Comment on above: Order Comment: No: Do not add to previou s draw Performed By: #### 3 5200 ####[facility] [place] [address], [facility] Chloride molar conc 101 mmol/L Normal 98-107 [facility] Comment on above: Order Comment: No: Do not add to previou s draw Performed By: #### 3 5200 ####[facility] [place] [address], [facility] CO2 molar conc 26 mmol/L Normal 21-31 [facility] Comment on above: Order Comment: No: Do not add to previou s draw Performed By: #### 3 5200 ####[facility] [place] [address], [place] Creatinine mass conc 0.99 mg/dL Normal 0.70-1.30 [facility] Comment on above: Order Comment: No: Do not add to previou s draw Performed By: #### 3 5200 ####[facility] [place] [address], [place] GFR/1.73 sq M predicted among blacks MDRD vol rate/area (S/P/Bld) mL/min/{1.73_m2} Normal >60 [facility] Comment on above: Order Comment: No: Do not add to previou s draw Performed By: #### 3 5200 ####[facility] [place] [address], [facility] GFR/1.73 sq M predicted among non-blacks MDRD vol rate/area (S/P/Bld) mL/min/{1.73_m2} Normal >60 [facility] Comment on above: Order Comment: No: Do not add to previou s draw Performed By: #### 3 5200 ####[facility] [place] [address], [place] Glucose mass conc 209 mg/dL High 70-100 [facility] Comment on above: Order Comment: No: Do not add to previou s draw Performed By: #### 3 5200 ####[facility] [place] [address], [place] Potassium molar conc 3.5 mmol/L Normal 3.5-5.1 [facility] Comment on above: Order Comment: No: Do not add to previou s draw Performed By: #### 3 5200 ####[facility] Sodium molar conc 135 mmol/L Low 136-145 [facility] Comment on above: Order Comment: No: Do not add to previou s draw Performed By: #### 3 5200 ####[facility] Urea nitrogen mass conc 24 mg/dL Normal 7-25 [facility] Comment on above: Order Comment: No: Do not add to previou s draw Performed By: #### 3 5200 ####[facility] CBC COMPLETE BLOOD COUNTon 0 10-05-2017 Erythrocyte distribution width Auto Ratio (RBC) 12.6 % Normal 11.5-15.0 [facility] Comment on above: Order Comment: No: Do not add to previou s draw Performed By: #### 3 5200 ####[facility] Hematocrit Auto Volume Fraction (Bld) 45.3 % Normal 39.0-50.0 [facility] Comment on above: Order Comment: No: Do not add to previou s draw Performed By: #### 3 5200 ####[facility] Hemoglobin mass conc (Bld) 15.1 g/dL Normal 13.0-17.0 [facility] Comment on above: Order Comment: No: Do not add to previou s draw Performed By: #### 3 5200 ####[facility] MCH Auto Entitic mass (RBC) 28.1 pg Normal 27.0-33.0 [facility] Comment on above: Order Comment: No: Do not add to previou s draw Performed By: #### 3 5200 ####[facility] [facility].[address] MCHC Auto mass conc (RBC) 33.3 g/dL Normal 32.0-35.0 [facility] Comment on above: Order Comment: No: Do not add to previou s draw Performed By: #### 3 5200 ####[facility] MCV Auto Entitic volume (RBC) 84.4 fL Normal 82.0-98.0 [facility] Comment on above: Order Comment: No: Do not add to previou s draw Performed By: #### 3 5200 ####[facility] Nucleated RBC/100 WBC Ratio (Bld) 0 % Normal 0-0 [facility] Comment on above: Order Comment: No: Do not add to previou s draw Performed By: #### 3 5200 ####[facility] PLAT CNT 316 10*3/uL Normal 150-400 [facility] Comment on above: Order Comment: No: Do not add to previou s draw Performed By: #### 3 5200 ####[facility] [facility].[address] RBC Auto #/vol (Bld) 5.37 10*6/uL Normal 4.20-5.70 [facility] Comment on above: Order Comment: No: Do not add to previou s draw Performed By: #### 3 5200 ####[facility] WBC Auto #/vol (Bld) 13.77 10*3/uL High 4.00-10.60 [facility] Comment on above: Order Comment: No: Do not add to previou s draw Performed By: #### 3 5200 ####[facility] Cardiovascular Lab Reporton 10-05-2017 Cardiovascular Lab Report [facility]: [id number] Physician: Verna Tidwell M.D.Medicine Service Date: 10/04/2017Division of Birthdate: 1965Cardiology Room #: 3CD [id number] [facility] [place], [place] [address]Pkyjd Fax Cardiovascular Laboratory ReportINDICATION: Monica Squires is [...] signed informed consent. 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 Catheterswere removed.Heparin was administered intravenously and therapeutic ACT confirmed duringthe procedure. A 6-Danish XB 3.5 guiding catheter was advanced and used toengage left main coronary ostium. A Argyle wire was advanced into thedistal LAD. Balloon angioplasty in the mid LAD was performed using Emerge3.0 x 15 mm balloon, inflated at 12 atmospheres. Angiography revealedsuboptimal results. This was treated using a Synergy 3.5 x 20 mmdrug-eluting stent deployed at 11 atmospheres, post dilated using NCQuantum [place] 3.5 x 15 mm noncompliant balloon inflated at 16 atmospheresthroughout the length of the stent. Angiography after administration ofintracoronary nitroglycerin showed excellent result with no evidence ofdissection or perforation and TANNER-3 flow in the LAD and branches. Guidingcatheter was removed. Procedure was concluded. The right femoralarteriotomy was managed with a 6-Danish Perclose device with goodhemostasis. He was loaded [...] 10/04/2017/01:46 P/Verna Yañez M.D.Date Trans: 10/05/2017 05:11 A/Diana_JN:[id number]: Dann Johnson M.D. [facility] [address] [facility] [address] Fred Mishra M.D. [address] [facility] Internal Medicine [facility] [address] [facility] Discharge Summaryon 10-06-19 Discharge Summary MR#: [id number] [facility] Monica Squires Admitted: 10/01/2017 Discharged: 10/05/2017 Date of : 1965 Physician: Yue Ibarra M.D. DISCHARGE SUMMARYDISCHARGING PHYSICIAN: Dr. Ibarra.PRIMARY CARE PHYSICIAN: Dr. Dann Johnson.PRIMARY DIAGNOSIS: Coronary artery disease status post stent placement.SECONDARY DIAGNOSES:1. Hypertension, controlled.2. Dyslipidemia.CONSULTS: Cardiology.PROCEDURES/IMAGING: EKG, stress test, and cardiac cath.HOSPITAL COURSE: This is a 52-year-old male, presented to [facility] for chestpain. EKG was done that [...] Yañez on 10/25/2017 at 9:45 a.m. at [facility].MEDICATIONS: Continue aspirin, statin, and Plavix [...] Dict: 10/05/2017/05:25 P/Mahendra Dailey Trans: 10/05/2017 06:46 P/[id number]: Dann Johnson M.D. [facility] [address] [facility] [address] Fred Mishra M.D. [address] [facility] Internal Medicine [facility] [address] Normal [facility] POC GLUCOSE LABon 10-05-2017 Glucose mass conc 134 mg/dL High 70-100 [facility] Comment on above: Performed By: #### 05400 ####[facility] [place] [address], [facility] BASIC METABOLIC PANELon 09-16 Calcium mass conc 9.0 mg/dL Normal 8.6-10.3 [facility] Comment on above: Order Comment: No: Do not add to previou s draw Performed By: #### 5 6101, 16412 ####[facility] [place] [address], [facility] Chloride molar conc 103 mmol/L Normal 98-107 [facility] Comment on above: Order Comment: No: Do not add to previou s draw Performed By: #### 5 6101, 37254 ####[facility] [place] [address], [place] CO2 molar conc 25 mmol/L Normal 21-31 [facility] Comment on above: Order Comment: No: Do not add to previou s draw Performed By: #### 5 6101, 39851 ####[facility] [place] [address], [place] Creatinine mass conc 1.05 mg/dL Normal 0.70-1.30 [facility] Comment on above: Order Comment: No: Do not add to previou s draw Performed By: #### 5 610, 40258 ####[facility] [place] [address], [place] GFR/1.73 sq M predicted among blacks MDRD vol rate/area (S/P/Bld) mL/min/{1.73_m2} Normal >60 [facility] Comment on above: Order Comment: No: Do not add to previou s draw Performed By: #### 5 610, 92775 ####[facility] [place] [address], [place] GFR/1.73 sq M predicted among non-blacks MDRD vol rate/area (S/P/Bld) mL/min/{1.73_m2} Normal >60 [facility] Comment on above: Order Comment: No: Do not add to previou s draw Performed By: #### 5 610, 21368 ####[facility] [place] [address], [place] Glucose mass conc 170 mg/dL High 70-100 [facility] Comment on above: Order Comment: No: Do not add to previou s draw Performed By: #### 5 610, 12736 ####[facility] [place] [address], [place] Potassium molar conc 3.1 mmol/L Low 3.5-5.1 [facility] Comment on above: Order Comment: No: Do not add to previou s draw Performed By: #### 5 610, 35583 ####[facility] [place] [address], [place] Sodium molar conc 137 mmol/L Normal 136-145 [facility] Comment on above: Order Comment: No: Do not add to previou s draw Performed By: #### 5 610, 11486 ####[facility] Urea nitrogen mass conc 32 mg/dL High 7-25 [facility] Comment on above: Order Comment: No: Do not add to previou s draw Performed By: #### 5 610, 19081 ####[facility] [facility].[address] CBC W/DIFFon 10-04-2017 ABS BASOPHILS 0.1 10*3/uL Normal 0.0-0.2 [facility] Comment on above: Order Comment: No: Do not add to previou s draw Performed By: #### 5 610, 91439 ####[facility] [facility].[address] ABS IMM GRANS 0.0 10*3/uL Normal 0.0-0.2 [facility] Comment on above: Order Comment: No: Do not add to previou s draw Performed By: #### 5 6100, 22618 ####[facility] ABS NEUTROPHILS 6.1 10*3/uL Normal 1.6-7.6 [facility] Comment on above: Order Comment: No: Do not add to previou s draw Performed By: #### 5 610, 43587 ####[facility] [facility].[address] Basophils Auto #/vol (Bld) 0.5 % Normal 0.0-1.0 [facility] Comment on above: Order Comment: No: Do not add to previou s draw Performed By: #### 5 610, 57594 ####[facility] Eosinophils Auto #/vol (Bld) 0.1 10*3/uL Normal 0.0-0.5 [facility] Comment on above: Order Comment: No: Do not add to previou s draw Performed By: #### 5 6100, 26137 ####[facility] Eosinophils/100 WBC Auto (Bld) 1.4 % Normal 0.0-6.0 [facility] Comment on above: Order Comment: No: Do not add to previou s draw Performed By: #### 5 6100, 16627 ####[facility] Erythrocyte distribution width Auto Ratio (RBC) 12.3 % Normal 11.5-15.0 [facility] Comment on above: Order Comment: No: Do not add to previou s draw Performed By: #### 5 6100, 81947 ####[facility] Hematocrit Auto Volume Fraction (Bld) 44.4 % Normal 39.0-50.0 [facility] Comment on above: Order Comment: No: Do not add to previou s draw Performed By: #### 5 6100, 34150 ####[facility] Hemoglobin mass conc (Bld) 14.9 g/dL Normal 13.0-17.0 [facility] Comment on above: Order Comment: No: Do not add to previou s draw Performed By: #### 5 6100, 49470 ####[facility] IMMATURE GRANS 0.3 % Normal 0.0-1.0 [facility] Comment on above: Order Comment: No: Do not add to previou s draw Performed By: #### 5 610, 29455 ####[facility] Lymphocytes Auto #/vol (Bld) 2.4 10*3/uL Normal 1.2-4.0 [facility] Comment on above: Order Comment: No: Do not add to previou s draw Performed By: #### 5 610, 91258 ####[facility] Lymphocytes/100 WBC Auto (Bld) 24.0 % Normal 20.0-45.0 [facility] Comment on above: Order Comment: No: Do not add to previou s draw Performed By: #### 5 6100, 19920 ####[facility] MCH Auto Entitic mass (RBC) 28.0 pg Normal 27.0-33.0 [facility] Comment on above: Order Comment: No: Do not add to previou s draw Performed By: #### 5 6100, 71839 ####[facility] [facility] MCHC Auto mass conc (RBC) 33.6 g/dL Normal 32.0-35.0 [facility] Comment on above: Order Comment: No: Do not add to previou s draw Performed By: #### 5 6100, 03209 ####[facility] MCV Auto Entitic volume (RBC) 83.5 fL Normal 82.0-98.0 [facility] Comment on above: Order Comment: No: Do not add to previou s draw Performed By: #### 5 610, 40150 ####[facility] Monocytes Auto #/vol (Bld) 1.3 10*3/uL High 0.1-1.0 [facility] Comment on above: Order Comment: No: Do not add to previou s draw Performed By: #### 5 610, 74708 ####[facility] MONOS 13.1 % High 5.0-12.0 [facility] Comment on above: Order Comment: No: Do not add to previou s draw Performed By: #### 5 610, 28092 ####[facility] [place] [address], [facility] Neutrophils/100 WBC Auto (Bld) 60.7 % Normal 40.0-72.0 [facility] Comment on above: Order Comment: No: Do not add to previou s draw Performed By: #### 5 6100, 58364 ####[facility] [place] [address], [facility] Nucleated RBC/100 WBC Ratio (Bld) 0 % Normal 0-0 [facility] Comment on above: Order Comment: No: Do not add to previou s draw Performed By: #### 5 6100, 73106 ####[facility] [place] [address], [facility] PLAT CNT 304 10*3/uL Normal 150-400 [facility] Comment on above: Order Comment: No: Do not add to previou s draw Performed By: #### 5 6100, 90649 ####[facility] [place] [address], [facility] RBC Auto #/vol (Bld) 5.32 10*6/uL Normal 4.20-5.70 [facility] Comment on above: Order Comment: No: Do not add to previou s draw Performed By: #### 5 6100, 35643 ####[facility] [place] [address], [facility] WBC Auto #/vol (Bld) 9.99 10*3/uL Normal 4.00-10.60 [facility] Comment on above: Order Comment: No: Do not add to previou s draw Performed By: #### 5 6100, 09170 ####[facility] [place] [address], [facility] MAGNESIUM BLOODon 10-04-2017 Magnesium mass conc 1.9 mg/dL Normal 1.9-2.7 [facility] Comment on above: Order Comment: No: Do not add to previou s draw Performed By: #### 3 5200 ####[facility] [place] [address], [place] PHOSPHORUS BLOODon 8 Phosphate mass conc 3.8 mg/dL Normal 2.5-5.0 [facility] Comment on above: Order Comment: No: Do not add to previou s draw Performed By: #### 5 6101, 80728 ####[facility] [place] [address], [place] POC GLUCOSE LABon 10-04-2017 Glucose mass conc 138 mg/dL High 70-100 [facility] Comment on above: Performed By: #### 03156 ####[facility] [place] [address], [place] Glucose mass conc 164 mg/dL High 70-100 [facility] Comment on above: Performed By: #### 89564 ####[facility] [place] [address], [place] Glucose mass conc 113 mg/dL High 70-100 [facility] Comment on above: Performed By: #### 33215 ####[facility] [place] [address], [place] Glucose mass conc 110 mg/dL High 70-100 [facility] Comment on above: Performed By: #### 27853 ####[facility] [place] [address], [place] POC GLUCOSE LABon 10-03-2017 Glucose mass conc 101 mg/dL High 70-100 [facility] Comment on above: Performed By: #### 71349, 00879 ####[facility] [place] [address], [place] Glucose mass conc 114 mg/dL High 70-100 [facility] Comment on above: Performed By: #### 63435, 17835 ####[facility] [place] [address], [place] Glucose mass conc 122 mg/dL High 70-100 [facility] Comment on above: Performed By: #### 05538, 69505 ####[facility] [place] [address], [place] BASIC METABOLIC PANELon 09-15 Calcium mass conc 9.2 mg/dL Normal 8.6-10.3 [facility] Comment on above: Order Comment: No: Do not add to previou s draw Performed By: #### 0 0071, 78617 ####[facility] [place] [address], [place] Chloride molar conc 99 mmol/L Normal 98-107 [facility] Comment on above: Order Comment: No: Do not add to previou s draw Performed By: #### 0 0071, 21436 ####[facility] [place] [address], [place] CO2 molar conc 26 mmol/L Normal 21-31 [facility] Comment on above: Order Comment: No: Do not add to previou s draw Performed By: #### 0 0071, 68658 ####[facility] [place] [address], [place] Creatinine mass conc 0.96 mg/dL Normal 0.70-1.30 [facility] Comment on above: Order Comment: No: Do not add to previou s draw Performed By: #### 0 0071, 20844 ####[facility] [place] [address], [place] GFR/1.73 sq M predicted among blacks MDRD vol rate/area (S/P/Bld) mL/min/{1.73_m2} Normal >60 [facility] Comment on above: Order Comment: No: Do not add to previou s draw Performed By: #### 0 0071, 08629 ####[facility] [place] [address], [facility] GFR/1.73 sq M predicted among non-blacks MDRD vol rate/area (S/P/Bld) mL/min/{1.73_m2} Normal >60 [facility] Comment on above: Order Comment: No: Do not add to previou s draw Performed By: #### 0 0071, 23057 ####[facility] [place] [address], [facility] Glucose mass conc 109 mg/dL High 70-100 [facility] Comment on above: Order Comment: No: Do not add to previou s draw Performed By: #### 0 0071, 79969 ####[facility] [place] [address], [facility] Potassium molar conc 3.5 mmol/L Normal 3.5-5.1 [facility] Comment on above: Order Comment: No: Do not add to previou s draw Performed By: #### 0 0071, 80881 ####[facility] [place] [address], [place] Sodium molar conc 135 mmol/L Low 136-145 [facility] Comment on above: Order Comment: No: Do not add to previou s draw Performed By: #### 0 0071, 66725 ####[facility] [place] [address], [facility] Urea nitrogen mass conc 16 mg/dL Normal 7-25 [facility] Comment on above: Order Comment: No: Do not add to previou s draw Performed By: #### 0 0071, 77901 ####[facility] CBC COMPLETE BLOOD COUNTon 10-02-2017 Erythrocyte distribution width Auto Ratio (RBC) 12.6 % Normal 11.5-15.0 [facility] Comment on above: Order Comment: No: Do not add to previou s draw Performed By: #### 5 0608 ####[facility] [facility].[address] Hematocrit Auto Volume Fraction (Bld) 45.2 % Normal 39.0-50.0 [facility] Comment on above: Order Comment: No: Do not add to previou s draw Performed By: #### 5 0608 ####[place] [address] [address] Hemoglobin mass conc (Bld) 15.4 g/dL Normal 13.0-17.0 [facility] Comment on above: Order Comment: No: Do not add to previou s draw Performed By: #### 5 0608 ####[facility] MCH Auto Entitic mass (RBC) 28.4 pg Normal 27.0-33.0 [facility] Comment on above: Order Comment: No: Do not add to previou s draw Performed By: #### 5 0608 ####[facility] [facility].[address] MCHC Auto mass conc (RBC) 34.1 g/dL Normal 32.0-35.0 [facility] Comment on above: Order Comment: No: Do not add to previou s draw Performed By: #### 5 0608 ####[facility] MCV Auto Entitic volume (RBC) 83.4 fL Normal 82.0-98.0 [facility] Comment on above: Order Comment: No: Do not add to previou s draw Performed By: #### 5 0608 ####[facility] [facility].[address] Nucleated RBC/100 WBC Ratio (Bld) 0 % Normal 0-0 [facility] Comment on above: Order Comment: No: Do not add to previou s draw Performed By: #### 5 0608 ####[facility] [facility] [place] [address], [facility] PLAT CNT 311 10*3/uL Normal 150-400 [facility] Comment on above: Order Comment: No: Do not add to previou s draw Performed By: #### 5 0608 ####[address] RBC Auto #/vol (Bld) 5.42 10*6/uL Normal 4.20-5.70 [facility] Comment on above: Order Comment: No: Do not add to previou s draw Performed By: #### 5 0608 ####[facility] [place] [address].[address] WBC Auto #/vol (Bld) 11.01 10*3/uL High 4.00-10.60 [facility] Comment on above: Order Comment: No: Do not add to previou s draw Performed By: #### 5 0608 ####[address] CHEST AND LATERALon 10-03-19 CHEST AND LATERAL [facility] CenterDepartment of Fcduysn[address] [place] [id number] ========Patient Name: MONICA SQUIRES : 1965Sex: MAge: Race: WhiteMRN: [id number]. Location: [id number] Status: OVisit #: [id number] Date: 10/02/2017 9:55:00 AMCompleted Date: 10/02/2017 10:51 AMRequesting Provider: SINGH SIMON Attending Provider: FRED MISHRA Report Copy To: Signs & Symptoms: Chest PainHistory: Patient history not availableComments: Other, ; Call/page results to 2501Exam: CHEST AND LATERALAccession #: [id number] CHEST AND LATERAL 10/02/2017 10:51 AM EDT [...] findings. Electronically signed by:Andrei Lui. Transcribed by: [email or web address], User Resident: FREDERICK ROMANElectronically Signed by: ANDREI LUI @ 10/02/2017 04:40 PMI personally read this/these film(s) with this resident Normal [facility] Comment on above: Order Comment: No: Do not add to previou s draw MAGNESIUM BLOODon 10-02-2017 Magnesium mass conc 1.8 mg/dL Low 1.9-2.7 [facility] Comment on above: Order Comment: No: Do not add to previou s draw Performed By: #### 0 0071, 65152 ####[facility] [facility] [address], [facility] POC GLUCOSE LABon 10-02-2017 Glucose mass conc 115 mg/dL High 70-100 [facility] Comment on above: Performed By: #### 07839, 31707 ####[facility] [facility] [place] [address], [facility] Glucose mass conc 149 mg/dL High 70-100 [facility] Comment on above: Performed By: #### 82099, 71603 ####[place] [address] [facility] [place] [address], [facility] Glucose mass conc 102 mg/dL High 70-100 [facility] Comment on above: Performed By: #### 70581 ####[address] [place] [address], [facility] Glucose mass conc 97 mg/dL Normal 70-100 [facility] Comment on above: Performed By: #### 02568 ####[place] [address] [facility] [place] [address], [facility] TROPONIN-Ion 10-02-2017 Troponin I.cardiac mass conc 0.00 ng/mL Normal 0.00-0.04 [facility] Comment on above: Order Comment: No: Do not add to previou s draw Result Comment: REFE RENCE RANGES: 0.00 - 0.14 ng/ml NEGATIVE 0.15 - 0.25 ng/ml INDETERMINATE > 0.25 ng/ml INDICATIVE OF AN M.I. Performed By: #### 5 6101, 42141 ####[place] [address], [facility] Troponin I.cardiac mass conc 0.00 ng/mL Normal 0.00-0.04 [facility] Comment on above: Order Comment: No: Do not add to previou s drawQ6 HRS, PER MAAME BLANTON Result Comment: REFE RENCE RANGES: 0.00 - 0.14 ng/ml NEGATIVE 0.15 - 0.25 ng/ml INDETERMINATE > 0.25 ng/ml INDICATIVE OF AN M.I. Performed By: #### 3 5200 ####[facility] Troponin I.cardiac mass conc 0.01 ng/mL Normal 0.00-0.04 [facility] Comment on above: Order Comment: No: Do not add to previou s drawQ6 HRS, PER RN HARVINDER Result Comment: REFE RENCE RANGES: 0.00 - 0.04 ng/ml NORMAL 0.05 - 0.50 ng/ml INDETERMINATE > 0.50 ng/ml CONSISTENT WITH AN M.I. Performed By: #### 3 5200 ####[facility] APTTon 10-01-2017 aPTT Coag time (Bld) 32.1 s Normal 25.0-35.0 [facility] Comment on above: Order Comment: No: Do [...] THIS PURPOSE. Performed By: #### 5 6101, 70138 ####[facility] PROTHROMBIN TIMEon 8 INR Coag RelTime (PPP) 1.02 {INR} Normal 0.91-1.16 [facility] Comment on above: Order Comment: No: Do not add to previou s [id number]- PATIENT DOES NOT HAVE I.D. BAND YET [...] OF ACTION, CLINICALEFFECTIVENESS, AND OPTIMAL THERAPEUTIC RANGE. [id number]. Performed By: #### 5 6101, 29622 ####[facility] Prothrombin time (PT) Coag time (PPP) 13.4 s Normal 12.3-14.8 [facility] Comment on above: Order Comment: No: Do not add to previou s [id number]- PATIENT DOES NOT HAVE I.D. BAND YET -TECH AB Result Comment: ALL RESULTS MUST BE INTERPRETED WITH RESPECT TO BLOOD DRAWING ARTIFACTOR DILUTION ERROR OF ANTICOAGULANT AT THE TIME OF SAMPLING. Performed By: #### 5 6101, 88714 ####[facility] TROPONIN-Ion 10-01-2017 Troponin I.cardiac mass conc 0.00 ng/mL Normal 0.00-0.04 [facility] Comment on above: Order Comment: No: Do not add to previou s draw Result Comment: REFE RENCE RANGES: 0.00 - 0.14 ng/ml NEGATIVE 0.15 - 0.25 ng/ml INDETERMINATE > 0.25 ng/ml INDICATIVE OF AN M.I. Performed By: #### 3 5200 ####[facility] Vital Signs Date Time Vital Sign Value Performing Clinician Rosamaria viveros 03-25-2023 14:13-0500 Body mass index (BMI) [Ratio] 34.12 kg/m2 Dann Johnson MD Work Phone: [facility] 03-25-2023 14:13-0500 Body weight 123.83 kg Dann Johnson MD Work Phone: [facility] 03-25-2023 14:13-0500 Diastolic blood pressure 82 mm[Hg] Dann Johnson MD Work Phone: [facility] 03-25-2023 14:13-0500 Heart rate 67 /min Dann Johnson MD Work Phone: [facility] 03-25-2023 14:13-0500 SaO2% (BldA) [Mass fraction] 95 % Dann Johnson MD Work Phone: [facility] 03-25-2023 14:13-0500 Systolic blood pressure 136 mm[Hg] Dann Johnson MD Work Phone: [facility] Encounters Encounter Date Encounter Type Care Provider Facility Start: 09-07-2023 End: 09-07-2023 ambulatory [facility] Start: 03-25-2023 End: 03-25-2023 ambulatory DANN JOHNSON Not Available Start: 03-25-2023 End: 03-25-2023 Office outpatient visit 25 minutes Dann Johnson MD Work Phone: [facility] Comment on above: Type 2 diabetes rickey itus with other specified complication, with long-term current use of insulin ([facility]); assisted (current) use of insulin (Z79.4); Atherosclerotic heart disease of [place] coronary artery with other forms of angina pectoris (I25.118); Type 2 diabetes mellitus with hyperglycemia, with long-term current use of insulin ([facility]) Start: 03-24-2023 Chart abstracting Dann Johnson MD Work Phone: [facility] Start: 03-10-2023 End: 01-24-2024 ambulatory VERNA MOUKARBEL [facility] Start: 02-10-2023 End: 02-10-2023 ambulatory DANN JOHNSON Not Available Start: 01-27-2023 End: 01-27-2023 ambulatory KANWAL RODRIGUEZ Not Available Start: 05-12-2021 End: 05-13-2021 ambulatory MYRNA MURILLOCKER Facility: Start: 11-29-2020 ambulatory [facility] Facility : Start: 11-01-2017 End: 11-02-2017 Patient encounter DEFAULT PHYSICIAN Facility:[facility] Start: 10-01-2017 End: 10-05-2017 Evaluation and management of inpatient FRED MISHRA Facility:[facility] Procedures Date Procedure Procedure Detail Performing Clinician Start: 03-25-2023 Hemoglobin glycosyla jessica a1c Dann Johnson MD Work Phone: Start: 10-04-2017 DILATION OF 1 COR AR T WITH DRUG-ELUT INTRA, PERC APPROACH VERNA YAÑEZ Start: 11-09-2016 Colonoscopy Dann Johnson MD Work Phone: Plan of Treatment Date Care Activity Detail Author Start: 11-09-2026 Screening for malign ant neoplasm of colon [facility] Start: 08-15-2023 Influenza vaccination Influenza Vacc ine (#1) [facility] Comment on above: Postponed from 10/16 (Other Patient Reasons) Start: 06-23-2023 Hemoglobin A1c measurement Diabetes: Hemoglobin A1C [facility] Start: 05-13-2023 End: 05-13-2023 Patient encounter procedure 05/13/2023 2:05 PM EDT Office Visit [facility] [address] [place] [address] Kanwal Rodriguez MD [address] [place] [address] [facility] Start: 03-25-2023 End: 03-25-2024 Microalbumin/Creatinine panel in random Urine Microalbumin / creatinine urine ratio Lab Routine Type 2 diabetes mellitus with other specified complication, with long-term current use of insulin ([facility]) Expected: 03/25/2023 (Approximate), Expires: 03/25/2024 [facility] Work Phone: Comment on above: Expected: 03/25/2023 (Approximate), Expires: 03/25/2024 Start: 03-25-2023 End: 03-25-2023 Patient encounter procedure 03/25/2023 2:00 PM EST Office Visit [facility] [address] [facility] [address] [place] [id number] Dann Johnson MD [address] [facility] [address] [place] [address] [facility] Start: 12-22-2022 Hemoglobin A1c measurement Diabetes: Hemoglobin A1C [facility] Start: 09-26-2022 Glaucoma screening Diabetes: R etinopathy Screening [facility] Start: 03-24-2022 Urine screening for protein Diabetes: Urine Protein Screening [facility] Start: 1965 Screening for malign ant neoplasm of colon [facility] Payers Date Payer Category Payer Medicaid [place] [employer] [id number] 2022-Present [address] [place] [address] [id number] 2022 Medicaid [id number] 1965 Unknown [id number] 1965 Unknown [id number] 1965 Unknown [id number] 1965 Unknown [id number] 1965 Unknown [id number] 1960 Self-pay 1960 Unknown [id number] Unknown Unknown [id number] Social History Date Type Detail Facility Start: [...] Tobacco Comment Quit tobacco 7 years ago [facility] Start: 1965 Sex Assigned At Not on file N [facility] Start: 08-26-2022 Gender identity Identifies as male gender (finding) [facility] Medical Equipment Procedure Code Equipment Code Equipment Origin al Text Equipment Identifier Dates USE DIRECTED TWICE A DAY [id number] Start: 06-15-2022 Progress note 09-07-2023 Note Date & Type Note Facility 09-07-2023 Note Patient here for [facility] ED yesterday for chest pain. He says it feels like a pulled muscle. It occurs intermittently, but only with rest - never exertion. Hasn't taken any nitroglycerin for the pain. Denies SOB, palpitations, and lightheadedness/syncope. Review of Systems Cardiovascular: Positive for chest pain (intermittent, at rest) and leg swelling. All other systems reviewed and are negative. [facility] Progress note 09-07-2023 Note Date & Type Note Facility 09-07-2023 Note Cardiovascular Medic [facility] SUBJECTIVE Chief Complaint Patient presents with [...] organic origin Localized, primary osteoarthritis of hand assisted (current) use of insulin (CMS/HCC) Low HDL [...] SL tablet, nitrogl (more content not included)... [facility] History of Present illness Narrative 03-25-2023 Dann Johnson MD - 03/25/2023 2:29 PM Uma Johnson MD - 03/25/2023 2:29 PM Uma Johnson MD - 03/25/2023 2:28 PM Uma Johnson MD - 03/25/2023 2:00 PM EST Note Date & Type Note Facility 03-25-2023 History of Presen t illness Narrative Associated Problem(s): Atherosclerotic heart disease of [place] coronary artery with other forms of angina pectoris (CMS/HCC) Reviewed Labs and has seen [facility] Top[employer]cher In February Associated Problem(s): Type 2 diabetes [...] healthy diet and exercise. 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 He does not see a wire splicer.Eye exam is current. Current Outpatient Medications on [...] mouth in the morning. Easy [employer]fort Pen [place] 31G X 5 MM misc USE DIRECTED [...] was 60% History of being hospitalized 09/2017 [facility]: CAD, stent placement History of stress [...] Procedure Laterality Date CARDIAC SURGERY COLONOSCOPY [address] [facility] [address] dinh diverticulosis coli internal hemorrhoids CORONARY STENT PLACEMENT 10/05/2019 OTHER SURGICAL HISTORY 10/04/2017 Stent Mid Left Artial Disease with 85% Blockage Balloon Angioplasty and Drug Eluting Stent mid LAD SKIN CANCER EXCISION 04/15/[facility] Visit Vitals BP 136/82 Pulse 67 [...] This Visit Circulatory Atherosclerotic heart disease of [place] coronary artery with other forms of angina pectoris (CMS/HCC) Reviewed Labs and has seen [employer] In February Endocrine/Metabolic Type 2 diabetes mellitus [...] ratio POCT Glycated hemoglobin, total (Completed) Other assisted (current) use of insulin (Z79.4) Adjust as needed to keep fasting less 120 Follow up in about 6 months (around 09/23/2023) for Diabetes. documented in this encounter [facility] Progress note 03-10-2023 Note Date & Type Note Facility 03-10-2023 Note [place] [facility] - [facility] Subjective Monica Squires is a [...] Rfl: nitroglycerin (Nitrostat (more content not included)... [facility] Evaluation note Note Date & Type Note Facility Evaluation note Diagnosis Type 2 diabetes mellitus with other specified complication, with long-term current use of insulin ([facility]) assisted (current) use of insulin (Z79.4) Atherosclerotic heart disease of [place] coronary artery with other forms of angina [...] and content) DATE CREATED AUTHOR 11/28/2017 [facility] DATE CREATED AUTHOR AUTHOR'S ORGANIZ ATION 03/25/2021 [facility] dical Specialist DATE CREATED AUTHOR AUTHOR'S ORGANIZ ATION 05/17/2021 [facility] pital DATE CREATED AUTHOR AUTHOR'S ORGANIZ ATION 03/26/2023 [facility] d[facility] Specialists EPIC DATE CREATED AUTHOR AUTHOR'S ORGANIZ ATION 09/10/2023 [facility] Care Teams (unrecognized sec tion and content) [employer] Relationship Specialty Start Date End Date Dann Johnson MD [address] [facility] [address] [place] [address] PCP - General Family Medicine 06/23/22 [employer] Relationship Specialty Start Date End Date Dann Johnson MD [address] [facility] [address] [place] [address] PCP - General Family Medicine 06/23/22 Reason [...] BE BASED ON THE PRIMARY CLINICAL RECORDS. [facility] [employer] [facility]. provides no warranty or guarantee of the accuracy or completeness of information in this document.
--- NOTE | 2023-10-08 09:43 | PC.NURSE ---
Nursing Note Cardiac Stress Test Reviewed: Medication, allergies and patient history reviewed. Stress Test: [x ] Patient tolerated stress test well. [ ] Patient unable to tolerate walking on treadmill. Switched to Lexiscan stress test. [ x] No chest pain noted per patient [ ] Chest pain that resolved prior to leaving stress lab. [x ] No dyspnea noted. [ ] Dyspnea that resolved prior to leaving stress lab. [ x] Patient left stress lab asymptomatic and hemodynamically stable. [ ] Patient taken to the Emergency Room due to non-resolving symptoms following stress test. [x ] Patient achieved target heart rate. [ ] Patient unable to achieve target heart rate. [ ] Aminophylline administered as reversal agent to Lexiscan (Regadenoson). [ ] Nitro administered. Nursing Comments:Pt had Cardiolite stress test done. Tolerated well. No chest pain only complaint was some hip discomfort which is normal for him with activity. Pt ambulated to cafeteria for breakfast prior to last set of images.
== END 2023-10-08 07:42 | disposition home or self-care (01) ==
LOC: CARD 07:41
PROVIDERS: PCP Family Medicine; Visit Provider Nurse Practitioner Family
DX: R07.89 Other chest pain (principal); I25.118 Atherosclerotic heart disease of native coronary artery with other forms of angina pectoris